=== PATIENT | female | born 1950 | race Caucasian/White ===

== ENCOUNTER → 2024-06-03 | Outpatient (CLI) | payer MEDICARE, SELFPAY ==
--- NOTE | 2024-06-03 15:26 | BI_ITS ---
MAMMOGRAPHY - BILATERAL SCREENING REASON FOR EXAM: Female, 74 years old. Routine annual screening examination. PERTINENT HISTORY: Non-contributory. TECHNIQUE: Digital bilateral breast beth (3D mammographic acquisition) in the CC and MLO projections. 2-D mediolateral oblique (MLO) and craniocaudad (CC) views of both breasts were obtained. CAD: Full Field Digital Mammography with Computer Added Detection was performed. COMPARISON: Comparison is made with prior study February 15, 2017. FINDINGS: Breast Composition: The breasts are almost entirely fatty. There are no dominant masses or suspicious calcifications. Stable small benign-appearing bilateral axillary lymph nodes. No other significant abnormalities are identified. There has been no significant change since the prior study. BI/SCRN MAMM (CAD)W/BETH BILAT IMPRESSION: Stable bilateral screening mammogram. Yearly follow-up mammogram recommended. (A) ASSESSMENT CATEGORY: BIRADS Category 2: Benign. A letter regarding these results will be sent to the patient by the facility within 30 days. Approximately 10% of breast cancers are not detected by mammography. A normal mammogram should not delay biopsy of a clinically suspicious abnormality. [id number] Electronically Signed: Leopoldo Phipps MD at 8:02 EDT ,
== END | disposition home or self-care (01) ==
PROVIDERS: PCP Family Medicine; Referring Provider Family Medicine; Visit Provider Family Medicine
DX: Z12.31 Encounter for screening mammogram for malignant neoplasm of breast (principal)
CPT/HCPCS: 77063; 77067

== ENCOUNTER → 2025-03-20 | Outpatient (CLI) | payer MEDICARE, SELFPAY ==
[2025-03-20 14:07] LABS: ALB/GLOB Ratio 1.7 RATIO (0.9-2.4); AST(SGOT) 28 U/L (<=31); Alanine Aminotransfer ALT/SGPT 42 U/L (<=34); Albumin, Serum 4.1 g/dL (3.4-4.8); Alkaline Phosphatase 58 U/L (35-104); Anion Gap 9 (5-15); BUN 25 mg/dL (4-19); BUN/Creat Ratio 24.2 RATIO (10-20); Calcium,Total 9.6 mg/dL (7.6-11.0); Chloride 108 mmol/L (98-108); Creatinine, Serum 1.04 mg/dL (0.70-1.20); EST Glomerular Filtration Rate 56 (>60); Globulin 2.5 g/dL (2.2-4.2); Glucose 157 mg/dL (70-99); Potassium 4.3 mmol/L (3.3-5.1); Protein, Total 6.5 g/dL (5.9-8.4); Sodium Level 143 mmol/L (133-145); Total Bilirubin 1.65 mg/dL (0.00-1.30)
== END | disposition home or self-care (01) ==
PROVIDERS: PCP Family Medicine; Referring Provider Student in an Organized Health Care Education/Training Program; Visit Provider Student in an Organized Health Care Education/Training Program
DX: R74.8 Abnormal levels of other serum enzymes (principal)
CPT/HCPCS: 36415; 80053

== ENCOUNTER → 2025-06-04 | Outpatient (CLI) | payer MEDICARE, SELFPAY ==
--- NOTE | 2025-06-04 12:45 | US_ITS ---
PROCEDURE: TRANSVAGINAL NON- 06/04/2025 REASON FOR EXAM: PROLAPSE TECHNIQUE: TRANSVAGINAL NON- COMPARISON: None FINDINGS: Measurements: Uterus: 7.3 cm x 4.9 cm x 3.2 cm with a volume of 59 mL Endometrial Thickness: Endometrium is thickening for the patient's postmenopausal state. It measures 8.2 mm. It is heterogeneous in appearance with fluid and findings suggestive of possible polyps the largest measuring 6 mm x 14 mm x 12 mm. Right Ovary: 1.7 cm x 1.6 cm x 1.1 cm with a volume of 1.61 mL. Left Ovary: The left ovary is not visualized. Uterus: Heterogeneous echotexture suggestive of fibroid change although no focal fibroid is seen. Endometrium: Heterogeneous thickening of the endometrium measuring 8.2 mm with fluid and possible polyps. Clinical correlation recommended. Right ovary: Normal size and echotexture. Left ovary: Not visualized. Other: No large pelvic mass identified. US/Transvaginal Non- IMPRESSION: Heterogeneous thickening of the endometrium as described. Possible polyps. Cl inical correlation recommended. Heterogeneous appearance of the uterus suggestive of fibroid change. Reading Location: [facility]
--- OUTSIDE RECORDS SUMMARY | 2025-06-04 22:23 | XMS RPT_ITS | CCD ---
Author Organization [facility] CliniSyin Care Team Providers Care Import/Export Agent Name Role Phone JIL EDUARDO, DR YUNIOR Noble Primary Care Physician Alexandria LEY MD, DR YUNIOR Noble Attending Yin LEY MD, DR YUNIOR Noble Primary Care Unavailshruthi LEY MD, DR YUNIOR Noble Primary Care Unavailshruthi COLUNGA MD, GISEL Townsend Attending Unavailable JIL EDUARDO, DR YUNIOR Noble Primary Care Unavailshruthi LEY MD, DR YUNIOR Noble Attending Unavailshruthi COLUNGA MD, GISEL Townsend Admitting Unavailable KEANU EDUARDO, GISEL Townsend Attending Unavailable JERONIMO OGDEN-BOAT HOIST OPERATOR HELPER, KERRI Soto Referring Unavail able JIL EDUARDO, DR YUNIOR Noble Primary Care Unavailshruthi LEY MD, DR YUNIOR Noble Primary Care Unavailshruthi COLUNGA MD, GISEL Townsend Attending Unavailable RODRIGO BORGES MD Referring Unavailable Dr. Yunior Ley DO Primary Care Provider Dr. Yunior Ley DO Referring Provider [phone] Sandra Campa Attending Provider [phone] Sandra Campa Referring Provider Dr. Coni Blanco DO Attending Provider Yunior Ley Referring Unavailable Jil, Yunior Primary Care Unavailable Coni Blanco Attending Unavailshruthi e Yunior Ley Primary Care Unavailable Sandra Kwan Referring Unavailable Sandra Kwan Attending Unavailable Coni Blanco Referring Unavailshruthi e Coni Blanco Attending Unavailabl e Yunior Ley Primary Care Unavailable Jil Yunior Referring Unavailable Jil, Yunior Primary Care Unavailable Sandra Kwan Attending Unavailable Yunior Ley Referring Unavailable Yunior Ley Primary Care Unavailable Sandra Kwan Attending Unavailable Allergies Allergy Classification Reported Allergen(s) Allergy Type Date of Onset Reaction(s) Facility (7 sources) Amiodarone; Translations: [amiodarone] Drug Allergy 5 Monoparesis - leg (disorder), Photosensitivity (finding) [facility] [place] [facility] Comment on above: nose turned purple (1 source) Amiodarone Drug Allergy 5 [facility] Repository (1 source) Unable to Assess Drug allergy (disorder) 5 [facility] Repository Medications Current Medications Medication Drug Class(es) Dates Sig (Normalized) Sig (Original) apixaban 5 mg oral tablet (8 sources) Factor Xa Inhibitor Start: 12-18-2023 take 1 tablet by mouth twice daily Apixaban (Eliquis) 5 mg tablet Active 5 mg PO TWICE A DAY February 04, 2025 12:00am carvedilol 25 mg oral tablet (8 sources) alpha-Adrenergic Luz Marina, beta-Adrenergic Luz Marina Start: 07-15-2024 take 1 tablet by mouth twice daily at mealtime Carvedilol 25 mg tablet Active 25 mg PO TWICE A DAY February 11, 2025 12:00am must administer with a meal/food empagliflozin 10 mg oral tablet (8 sources) Sodium-Glucose Cotransporter 2 Inhibitor Start: 06-12-2024 take 1 tablet by mouth once daily Empagliflozin (Jardiance) 10 mg tablet Active 10 mg PO daily February 11, 2025 12:00am losartan potassium 100 mg oral tablet (8 sources) Angiotensin 2 Receptor Luz Marina Start: 02-04-2025 take 1 tablet by mouth once daily Losartan 100 mg tablet Active 100 mg PO daily February 04, 2025 12:00am Start: 09-15-2024 losartan 50 mg oral tablet Dose : 50 mg = 1 tab(s), Oral, qDay, # 90 tab(s), 3 Refill(s), Pharmacy: [id number] 165.1, cm, 09/10/24 13:43:00 EDT, Height, kg, 09/10/24 13:43:00 EDT, Dosing Weight Start Date: 09/15/24 Status: Ordered Quantity: 90.0 Unit: tab(s) Repeat number: 4 metFORMIN hydrochloride 500 mg oral tablet (8 sources) Biguanide Start: 05-26-2020 take 1 tablet by mouth once daily Metformin 500 mg tablet Active 500 mg PO daily February 11, 2025 12:00am 0.25 mg, 0.5 mg dose 1.5 ml semaglutide 1.34 mg/ml pen injector (3 sources) Start: 02-04-2025 Semaglutide (Ozempic) 0.25 mg or 0.5 mg(2 mg/1.5 mL) pen injector Active 0.5 mg SC EVERY WEEK February 04, 2025 12:00am sotalol hydrochloride 80 mg oral tablet (13 sources) Antiarrhythmic Start: 05-25-2025 take 1 tablet by mouth twice daily Sotalol 80 mg tablet Active 80 mg PO TWICE A DAY May 25, 2025 12:00am Start: 01-22-2025 End: 05-25-2025 take 1 tablet by mouth twice daily Sotalol 120 mg tablet Discontinued 120 mg PO TWICE A DAY February 11, 2025 12:00am May 25, 2025 11:27am Start: 12-04-2024 take 1.5 tablets by mouth in the morning, then take 1 tablet by mouth in the evening sotalol 120 mg oral tablet See Instructions, 1.5 tab(s) In morning 1 tab in evening, # 180 tab(s), 3 Refill(s) Start Date: 12/04/24 Status: Ordered Quantity: 180.0 Unit: tab(s) Repeat number: 4 Completed/Discontinued Medications Medication Drug Class(es) Dates Sig (Normalized) Sig (Original) 0.25 MG, 0.5 MG Dose 3 ML semaglutide 0.68 MG/ML Pen Injector [Ozempic] (5 sources) Start: 01-22-2025 inject 0.5 mg by subcutaneous injection every week Ozempic 2 mg/3 mL (0.25 mg or 0.5 mg dose) subcutaneous solution Dose : 0.5 mg =, Subcutaneous, qWeek, mondays rotate injection sites, # 1 EA, 0 Refill(s) Start Date: 01/22/25 Status: Ordered Quantity: 1.0 Unit: EA Repeat number: 1 Start: 08-01-2024 inject 0.5 mg by sub cutaneous injection every week Ozempic 2 mg/3 mL (0.25 mg or 0.5 mg dose) subcutaneous solution Dose : 0.25 mg =, Subcutaneous, qWeek, rotate injection sites, # 1 EA, 0 Refill(s) Start Date: 06/12/24 Status: Ordered Quantity: 1.0 Unit: EA Repeat number: 1 metoprolol tartrate 100 mg oral tablet (3 sources) beta-Adrenergic Luz Marina Start: 02-04-2025 End: 02-11-2025 take 1 tablet by mouth once daily Metoprolol Tartrate 100 mg tablet Discontinued 100 mg PO daily February 04, 2025 12:00am February 11, 2025 10:29am rosuvastatin calcium 10 mg oral tablet (6 sources) HMG-CoA Reductase Inhibitor Start: 02-04-2025 End: 02-11-2025 take 1 tablet by mouth once daily Rosuvastatin 10 mg tablet Discontinued 10 mg PO daily February 04, 2025 12:00am February 11, 2025 10:31am Start: 07-09-2024 take 1 tablet by melva th once daily rosuvastatin 10 mg oral tablet 1 tab(s), Oral, qDay, # 90 tab(s), 2 Refill(s), Pharmacy: [facility] 165.1, cm, 06/12/24 13:05:00 EDT, Height, kg, 06/12/24 13:05:00 EDT, Dosing Weight Start Date: 07/09/24 Status: Ordered Quantity: 90.0 Unit: tab(s) Repeat number: 3 Problems Problem Classification Problem Date Documented Date Episodic/Chronic Cardiac dysrhythmias (5 sources) Paroxysmal atrial fibrillation 05-12-2020 Chronic Comment on above: Stable. Maintaining sinus rhythm. She is on amiodarone and Eliquis. EKG in room shows sinus bradycardia with a QT of 0.44. Disorders of lipid metabolism (5 sources) Mixed hyperlipidemia 05-12-2020 Chronic Comment on above: Stable. LDL goal is less than 100. Tolerating statin. Essential hypertension (5 sources) Essential hypertension 05-12-2020 Chronic Comment on above: Controlled. Blood pr essure goal is less than 130/80. She is on metoprolol and losartan. Checks lab work through PCP. Other liver diseases (8 sources) Elevated liver enzymes level; Translations: [Abnormal levels of other serum enzymes] 02-11-2025 Episodic Other liver diseases (1 source) Abnormal levels of other serum enzymes; Translations: [Abnormal levels of other serum enzymes] Onset: 04-15-2025 Episodic Other lower respiratory disease (5 sources) Dyspnea 05-26-2020 Episodic Paralysis (5 sources) Paraparesis 05-12-2020 Chronic Comment on above: Patient does complai n of bilateral leg weakness. She states it feels like it is coming from her knees. She does have arthritis. She states she can walk on flat planes without difficulty, but anything with an incline tires her legs out. Leda-; endo-; and myocarditis; cardiomyopathy (except that caused by tuberculosis or sexually transmitted disease) (5 sources) Dilated cardiomyopathy 05-12-2020 Chronic Comment on above: In 2016 patient was diagnosed with cardiomyopathy, EF was 25%. Thought to be tachycardia mediated due to the fact she was in atrial fibrillation with RVR. When she converted back to a sinus rhythm repeat echocardiogram showed an EF of 55%. She is on metoprolol and losartan. Prolapse of female genital organs (2 sources) Female genital prolapse, unspecified; Translations: [Female genital prolapse, unspecified] Onset: 05-25-2025 Chronic Results Test Name Value Interpretation Reference Range Facility Sharepoint Specialist Office Visit Reporton 05-25-2025 Sharepoint Specialist Office Visit Report [facility] [address], [address] [place] [address] OFFICE VISIT Date of Service: 05/25/25 MR#: [id number] Acct: [id number] Name: GILMA RABAGO Rep #: [id number] 6 : 1950 Provider: Dr. Coni Funes DO Age/Sex: 75/F Location: [facility] Status: Signed Intake Vital Signs 05/25/25 11:28 Height 5 ft 5 in Weight: 158 lb 6 oz BMI 26.3 BP 138/86 H Intake Visit Reasons: Surgical Consult (KYLE) Chief Complaint: Surgical Consult Piping Designer Required: No Is patient in pain?: No Allergies amiodarone Allergy (Verified 05/25/25 11:26) Other Medications ???Medication ???Instructions ???Recorded ???Confirmed ???Type apixaban 5 mg tablet (Eliquis) 5 mg PO BID 02/04/25 05/25/25 Hist ory losartan 100 mg tablet 100 mg PO QDAY 02/04/25 05/25/25 H istory semaglutide 0.25 mg or 0.5 mg (2 0.5 mg subcut QWEEK 02/04/2505/25 History mg/1.5 mL) subcutaneous pen injector (Ozempic) carvedilol 25 mg tablet 25 mg PO BID 02/11/25 05/25/25 His tory empagliflozin 10 mg tablet 10 mg PO QDAY 02/11/25 05/25/25 Hi story (Jardiance) metformin 500 mg tablet 500 mg PO QDAY 02/11/25 05/25/25 H istory sotalol 80 mg tablet 80 mg PO BID 05/25/25 05/25/25 His tory Is last menstrual period known: No Post menopausal: Yes Patient : No : No PFSH Medical History (Updated 05/25/25 @ 17:[address] Coni Blanco DO) Melanoma GERD (gastroesophageal reflux disease) Hypertension Gallstones Diabetes Bilateral cataracts Afib Surgical History (Updated 05/25/25 @ 17:[address] Coni Blanco DO) History of cardiac ablation for atrial fibrillation History of conization of cervix Carbon teeth removed Family History Father Bladder cancer Myocardial infarction, Onset Age: 86 Social History Smoking Status: Never smoker alcohol intake: current alcohol intake frequency: holidays/special occasions only substance use type: does not use what type of physical activity do you participate in: none HPI Surgical Consult (KYLE) Details: GILMA RABAGO is a 75 year old who presents for surgical consultation. She has the complaint of pelvic floor prolapse and has seen Dr. Song already. Dr. song told her that she has at least a grade 2 cystocele. She was counseled on the use of a pessary and she declines. She is still sexually active with her and does not want to have to take it out every time they are intimate. She denies bladder symptoms at this time. She denies bleeding ,bloating, cramping. She has not undergone a pelvic ultrasound yet. ROS Const ROS Unobtainable: All systems reviewed are unremarkable except as noted in H Resp Resp: Reports system reviewed and no additional complaints, except as documented; Denies cough GI GI: Reports as per HPI Psych Psych: Reports system reviewed and no additional complaints, except as documented Exam Const General: cooperative, healthy appearing, comfortable and no acute distress Resp Effort Inspection: normal respiratory effort GI Inspection: normal to inspection and non-distended Palpation: no hepatosplenomegaly and no guarding External Female Exam: gaping introitus and other (vaginal atrophy present. ) Urethra: other (small urethral prolapse ) Speculum Exam - Cervix: other (The cervix is difficult to visualize, likely due to stenosis. ) Bimanual Exam- Vagina Uterus: normal bimanual exam Bimanual Exam- Adnexa, other: normal rectovaginal exam, rectocele, cystocele and vaginal apex descent Recto-Vaginal: normal rectovaginal exam Pelvic Support: cystocele moderate, rectocele and vaginal apex descent mild Other: THe cervix palpated but not visualized. Skin General: no rashes or lesions noted Psych Appearance: grossly normal Speech and Movement: speech and movement normal Coding Level of Care Code Off vis,est,level 3 Diagnoses Pelvic organ prolapse quantification stage 2 cystocele N81.10 History of cardiac ablation for atrial fibrillation Z98.890; I48.91 Elevated liver enzymes R74.8 Assessment and Plan Assessment and Plan (1) Pelvic organ prolapse quantification stage 2 cystocele: Status: Acute (2) History of cardiac ablation for atrial fibrillation: Status: Acute (3) Elevated liver enzymes: Status: Acute Orders: Orders Pelvic w/ Transvaginal Today N81.9 - Female genital prolapse, unspecified Plan plan to start with a pelvic ultrasound and when results back will decide on mode of hysterectomy. followed by GI for mildly elevate LFTs. Likely due to the use of statins. 05/25/251726 Date (more content not included)... Normal [facility] Gastroenterology Visit Repor ton 06-04-2025 Gastroenterology Visit Report [facility] [address] [place] [address] OFFICE VISIT Date of Service: 04/15/25 MR#: [id number] Acct: [id number] Name: GILMA RABAGO Rep #: [id number] 1 : 1950 Provider: GEOFFREY Toro Age/Sex: 75/F Location: [facility] Status: Signed Intake Intake Visit Reasons: Follow up Chief Complaint: elevated liver enzymes Allergies amiodarone Allergy (Verified 04/14/25 15:41) Other Have you fallen in the past year?: No Nurse's Note: OV 04.15.25 Pt here for a f/u. Pt reports she is feeling well. Pt continues metoromin, jardiance and ozempic. PFSH Medical History (Updated 04/14/25 @ 15:39 by Rosa Harris) Melanoma GERD (gastroesophageal reflux disease) Hypertension Gallstones Diabetes Bilateral cataracts Afib Surgical History (Updated 04/14/25 @ 15:40 by Rosa Harris) History of endometrial ablation History of conization of cervix Carbon teeth removed Family History (Updated 04/14/25 @ 15:42 by Rosa Harris) Father Bladder cancer Myocardial infarction, Onset Age: 86 Social History (Updated 04/14/25 @ 15:41 by Rosa Harris) Smoking Status: Never smoker alcohol intake: current alcohol intake frequency: holidays/special occasions only substance use type: does not use what type of physical activity do you participate in: none HPI HPI Chief Complaint: elevated liver enzymes Details: GILMA RABAGO, is a 75 F who presents to the office today for f/u. [facility] established 4.2.35 for elevated LFTS x1 year. Dec 2024 with AST 49 and ALT 79 . She is s/p cholecystectomy in 2009. Pt on Crestor but recently discontinued due to her LFTS. Using acetaminophen intermittently but sometimes daily for a week or two. Repeat CMP. Consider elastography. Biochemical work up 5.9.25; AST 28, ALT 42 H, ALP 58 OV 6.4.25 Pt feeling well today. She denies any GI symtpoms at this time. She is not taking statin still. Exam Const General: cooperative and healthy appearing Resp Effort Inspection: normal respiratory effort Cardio Rate: regular rate Rhythm: regular rhythm GI Inspection: normal to inspection Auscultation: normal bowel sounds Palpation: soft, no hepatosplenomegaly and nontender Assessment and Plan Assessment and Plan (1) Elevated liver enzymes: Status: Acute Plan: Gilma is a 75 yo female pt here today for f/u regarding her elevated liver enzymes. She was taken off her Crestor a few months back as her PCP had concern it was increasing her enzymes. Blood work from early March 2025 showed decreasing enzymes. ALT continues to be elevated but just mildly. I will repeat LFTs in 2 months for continued monitoring. -Repeat LFTs in 2 months -Avoid hepatotoxic agents Orders: Orders Comprehensive Metabolic Profil Today R74.8 - Abnormal levels of other serum enzymes Coding Level of Care Code Off vis,est,level 3 Diagnoses Elevated liver enzymes R74.8 Clinical Quality Measures Falls Risk Screening/Assistive Devices Have you fallen in the past year?: No 04/15/25 1542 Date Sandra Davisigner Signature: Date (if applicable) CC: Normal [facility] Anion gap in Serum or Plasma Ordered By: Sandra Kwan on 03-20-2025 Anion gap [Moles/Vol] 9 mmol/L 5-15 [facility] BUN/creatinine ratioOrdered By: Sandra Kwan on 03-20-2025 Urea nitrogen/Creatinine [Mass ratio] 24.2 mg/mg High 10-20 [facility] Bilirubin, totalOrdered By: Sandra Kwan on 03-20-2025 Bilirubin [Mass/Vol] 1.65 mg/dL High 0.00-1.30 [facility] Carbon dioxide, total [Moles /volume] in Central venous bloodOrdered By: Sandra Kwan on 03-20-2025 CO2 [Moles/Vol] 25.0 mmol/L 21.0-32.0 [facility] Chloride assayOrdered By: Ying Kwan on 03-20-2025 Chloride [Moles/Vol] 108 mmol/L 98-108 [facility] Comprehensive Metabolic Prof ilon 03-20-2025 Albumin [Mass/Vol] 4.1 g/dL Normal 3.4-4.8 [facility] Comment on above: Performed By: #### L 500.4050 #### [facility] [address] [place], [address] Albumin/Globulin [Mass ratio] 1.7 {ratio} Normal 0.9-2.4 [facility] Comment on above: Performed By: #### L 500.4050 #### [facility] [address] [place], [address] ALK PHOS 58 U/L Normal 35-104 [facility] Comment on above: Performed By: #### L [id number] #### [facility] [address] [place], [address] ALT [Catalytic activity/Vol] 42 U/L High <=34 [facility] Comment on above: Performed By: #### L [id number] #### [facility] [address] [place], [address] AST [Catalytic activity/Vol] 28 U/L Normal <=31 [facility] Comment on above: Performed By: #### L [id number] #### [facility] [address] [place], [address] Bilirubin [Mass/Vol] 1.65 mg/dL High 0.00-1.30 [facility] Comment on above: Performed By: #### L 500.4050 #### [facility] [address] [place], [address] BUN/CRE 24.2 RATIO High 10-20 [facility] Comment on above: Performed By: #### L [id number] #### [facility] [address] [place], [address] Calcium [Mass/Vol] 9.6 mg/dL Normal 7.6-11.0 [facility] Comment on above: Performed By: #### L [id number] #### [facility] [address] [place], [address] Chloride [Moles/Vol] 108 mmol/L Normal 98-108 [facility] Comment on above: Performed By: #### L 500.4050 #### [facility] [address] [place], [address] CO2 [Moles/Vol] 25.0 mmol/L Normal 21.0-32.0 [facility] Comment on above: Performed By: #### L 500.4050 #### [facility] [address] [place], [address] Creatinine [Mass/Vol] 1.04 mg/dL Normal 0.70-1.20 [facility] Comment on above: Performed By: #### L 500.4050 #### [facility] [address] [place], [address] GAP 9 Normal 5-15 [facility] Comment on above: Performed By: #### L 500.4050 #### [facility] [address] [place], [address] GFR/1.73 sq M.predicted among non-blacks MDRD (S/P/Bld) [Vol rate/Area] 56 mL/min/{1.73_m2} Low >60 [facility] Comment on above: Result Comment: mL/m in/1.73m2 CKD-EPI Creatinine Equation (2020) Performed By: #### L 500.4050 #### [facility] [address] [place], [address] Globulin (S) [Mass/Vol] 2.5 g/dL Normal 2.2-4.2 [facility] Comment on above: Performed By: #### L 500.4050 #### [facility] [address] [place], [address] Glucose [Mass/Vol] 157 mg/dL High 70-99 [facility] Comment on above: Performed By: #### L 500.4050 #### [facility] [address] [place], [address] Potassium [Moles/Vol] 4.3 mmol/L Normal 3.3-5.1 [facility] Comment on above: Performed By: #### L 500.4050 #### [facility] [address] [place], [address] Sodium [Moles/Vol] 143 mmol/L Normal 133-145 [facility] Comment on above: Performed By: #### L 500.4050 #### [facility] [address] [place], [address] T PROT 6.5 g/dL Normal 5.9-8.4 [facility] Comment on above: Performed By: #### L 500.4050 #### [facility] [address] [place], [address] Urea nitrogen [Mass/Vol] 25 mg/dL High 4-19 [facility] Comment on above: Performed By: #### L 500.4050 #### [facility] [address] [place], [address] Glomerular filtration rate ( GFR) estimation/1.73 sq m using serum, plasma, or whole bOrdered By: Sandra Kwan on 03-20-2025 GFR/1.73 sq M.predicted among non-blacks MDRD (S/P/Bld) [Vol rate/Area] 56 mL/min/{1.73_m2} Low >60 [facility] Comment on above: mL/min/1.73m2 CKD-EP I Creatinine Equation (2020) Laboratory - Chemistry and C hemistry - challengeOrdered By: Sandra Kwan on 03-20-2025 AST [Catalytic activity/Vol] 28 U/L <32 [facility] Potassium measurement (mass/ volume)Ordered By: Sandra Kwan on 03-20-2025 Potassium (Unsp spec) [Mass/Vol] 4.3 mmol/L 3.3-5.1 [facility] Serum creatinine measurement (mass/volume)Ordered By: Sandra Kwan on 03-20-2025 Creatinine [Mass/Vol] 1.04 mg/dL 0.70-1.20 [facility] Serum globulin measurementOr dered By: Sandra Kwan on 03-20-2025 Globulin (S) [Mass/Vol] 2.5 g/dL 2.2-4.2 [facility] Serum glucose measurement (m ass/volume)Ordered By: Sandra Kwan on 03-20-2025 Glucose [Mass/Vol] 157 mg/dL High 70-99 [facility] Serum or plasma alanine honeycutt otransferase (ALT) measurementOrdered By: Sandra Kwan on 03-20-2025 ALT [Catalytic activity/Vol] 42 U/L High <35 [facility] Serum or plasma albumin hari urement (mass/volume)Ordered By: Sandra Kwan on 03-20-2025 Albumin [Mass/Vol] 4.1 g/dL 3.4-4.8 [facility] Serum or plasma albumin/glob ulin mass ratioOrdered By: Sandra Kwan on 03-20-2025 Albumin/Globulin [Mass ratio] 1.7 {ratio} 0.9-2.4 [facility] Serum or plasma alkaline mame sphatase measurementOrdered By: Sandra Kwan on 03-20-2025 ALP [Catalytic activity/Vol] 58 U/L 35-104 [facility] Serum or plasma calcium hari urement (mass/volume)Ordered By: Sandra Kwan on 03-20-2025 Calcium [Mass/Vol] 9.6 mg/dL 7.6-11.0 [facility] Serum or plasma urea nitroge n measurement (mass/volume)Ordered By: Sandra Kwan on 03-20-2025 Urea nitrogen [Mass/Vol] 25 mg/dL High 4-19 [facility] Sodium levelOrdered By: June black Aquiles on 03-20-2025 Sodium [Moles/Vol] 143 mmol/L 133-145 [facility] Total proteinOrdered By: Dory tobin Aquiles on 03-20-2025 Protein [Mass/Vol] 6.5 g/dL 5.9-8.4 [facility] .GFRon 02-13-2025 Estimated Glomerular Filtration Rate 52 ml/min/1.73sqm Normal [facility] Comment on above: Result Comment: Stages of Chronic Kidney Disease (CKD) Stage Description eGFR(ml/min/1.73 sq.m.) CKD 1 Normal kidney function or >=90 normal kindney function with possible kidney damage (ex. Proteinuria) CKD 2 Kidney damage with mild loss 60-89 of kidney function CKD 3a Mild to moderate loss of kidney 45-59 function CKD 3b Moderate to severe loss of 30-44 of kindey function CKD 4 Severe loss of kidney function 15-29 CKD 5 Kidney failure <15 Note: (go live 2024) the eGFR calculation was updated to the 2020 CKD-EPI creatinine equation without a race factor to calculate the eGFR results. Performed By: #### G FR, BMP, CBC, ANEU, ADIFF #### [address] [address] BMPon 02-13-2025 BUN/Creatinine Ratio 26.4 ratio High 10.0-22.[address] [facility] MAIN Comment on above: Performed By: #### G FR, BMP, CBC, ANEU, ADIFF #### [address] [address] Calcium [Mass/Vol] 8.8 mg/dL Normal 8.7-10.4 [facility] Comment on above: Performed By: #### G FR, BMP, CBC, ANEU, ADIFF #### [address] [address] Chloride [Moles/Vol] 109 mmol/L Normal 98-[address] [facility] Comment on above: Performed By: #### G FR, BMP, CBC, ANEU, ADIFF #### [address] [address] CO2 [Moles/Vol] 25 mmol/L Normal 22-32 [facility] Comment on above: Performed By: #### G FR, BMP, CBC, ANEU, ADIFF #### [address] [address] Creatinine [Mass/Vol] 1.10 mg/dL Normal 0.50-1.20 [facility] MA[facility] Comment on above: Result Comment: Test ing performed on [employer] analyzer using enzymatic creatinine methodology. Performed By: #### G FR, BMP, CBC, ANEU, ADIFF #### [address] [address] Electrolyte Balance 8.0 mEq/L Normal 4.0-15.0 [facility] MAIN Comment on above: Performed By: #### G FR, BMP, CBC, ANEU, ADIFF #### [address] [address] Glucose [Mass/Vol] 226 mg/dL High 82-115 [facility] Comment on above: Performed By: #### G FR, BMP, CBC, ANEU, ADIFF #### [address] [address] Potassium [Moles/Vol] 4.2 mmol/L Normal 3.5-5.0 [facility] Comment on above: Performed By: #### G FR, BMP, CBC, ANEU, ADIFF #### [address] [address] Sodium [Moles/Vol] 142 mmol/L Normal 136-145 [facility] Comment on above: Performed By: #### G FR, BMP, CBC, ANEU, ADIFF #### [address] [address] Urea nitrogen [Mass/Vol] 29.0 mg/dL High 8.0-22.0 [facility] Comment on above: Performed By: #### G FR, BMP, CBC, ANEU, ADIFF #### [address] [address] LABORATORYOrdered By: SYSTEM SYSTEM on 02-13-2025 Calcium [Mass/Vol] 8.8 mg/dL Normal 8.7 - 10. 4 mg/dL AH ADM SS Chloride [Moles/Vol] 109 mmol/L Normal 98 - 11 0 mEq/L AH ADM SS CO2 [Moles/Vol] 25 mmol/L Normal 22 - 32 mEq/L AH ADM SS Creatinine [Mass/Vol] 1.10 mg/dL Normal 0.50 - 1.20 mg/dL AH ADM SS Comment on above: Interpretive Data: T esting performed on [employer] analyzer using enzymatic creatinine methodology. Electrolyte Balance 8.0 mEq/L Normal 4.0 - 15 .0 mEq/L AH ADM SS Estimated Glomerular Filtration Rate 52 ml/min/1.73sqm Invalid Interpretation Code Chemistry S Comment on above: Interpretive Data: Stages of Chronic Kidney Disease (CKD) Stage Description eGFR(ml/min/1.73 sq.m.) CKD 1 Normal kidney function or >=90 normal kindney function with possible kidney damage (ex. Proteinuria) CKD 2 Kidney damage with mild loss 60-89 of kidney function CKD 3a Mild to moderate loss of kidney 45-59 function CKD 3b Moderate to severe loss of 30-44 of kindey function CKD 4 Severe loss of kidney function 15-29 CKD 5 Kidney failure <15 Note: (go live 2024) the eGFR calculation was updated to the 2020 CKD-EPI creatinine equation without a race factor to calculate the eGFR results. Glucose [Mass/Vol] 226 mg/dL High 82 - 115 mg/dL ADM SS Potassium [Moles/Vol] 4.2 mmol/L Normal 3.5 - 5.0 mEq/L ADM SS Sodium [Moles/Vol] 142 mmol/L Normal 136 - 145 mEq/L ADM SS Urea nitrogen [Mass/Vol] 29.0 mg/dL High 8.0 - 22.0 mg/dL ADM SS Urea nitrogen/Creatinine [Mass ratio] 26.4 ratio High 10.0 - 22.0 ratio AH ADM SS .Auto Diffon 02-12-2025 Basophil, Absolute 0.0 10 3/mcL Normal 0.0-0.[address] [facility] Comment on above: Performed By: #### A JANES, GFR, ADIFF, BMP, ABSGEL, ABOGEL, CBC #### [place] [id number] [place] [address] Basophils/100 WBC (Bld) 0.4 % Normal 0.0-2.5 [facility] Comment on above: Performed By: #### A JANES, GFR, ADIFF, BMP, ABSGEL, ABOGEL, CBC #### [address] [address] Eosinophil, Absolute 0.1 10 3/mcL Normal 0.0-0.7 [facility] Comment on above: Performed By: #### A JANES, GFR, ADIFF, BMP, ABSGEL, ABOGEL, CBC #### [address] [address] Eosinophils/100 WBC (Bld) 2.8 % Normal 0.0-6.0 [facility] Comment on above: Performed By: #### A JANES, GFR, ADIFF, BMP, ABSGEL, ABOGEL, CBC #### [address] [address] Lymphocyte, Absolute 0.9 10 3/mcL Normal 0.9-4.3 [facility] Comment on above: Performed By: #### A JANES, GFR, ADIFF, BMP, ABSGEL, ABOGEL, CBC #### [address] [address] Lymphocytes/100 WBC (Bld) 21.0 % Normal 20.0-40.0 [facility] Comment on above: Performed By: #### A JANES, GFR, ADIFF, BMP, ABSGEL, ABOGEL, CBC #### [address] [address] Monocyte, Absolute 0.6 10 3/mcL Normal 0.1-1.[address] [facility] Comment on above: Performed By: #### A JANES, GFR, ADIFF, BMP, ABSGEL, ABOGEL, CBC #### [address] [address] Monocytes/100 WBC (Bld) 13.1 % High 2.0-13.0 [facility] Comment on above: Performed By: #### A JANES, GFR, ADIFF, BMP, ABSGEL, ABOGEL, CBC #### [address] [address] Neutrophils/100 WBC (Bld) 62.7 % Normal 50.0-75.0 [facility] Comment on above: Performed By: #### A JANES, GFR, ADIFF, BMP, ABSGEL, ABOGEL, CBC #### [address] [address] .GFRon 02-12-2025 Estimated Glomerular Filtration Rate 53 ml/min/1.73sqm Normal [facility] Comment on above: Result Comment: Stages of Chronic Kidney Disease (CKD) Stage Description eGFR(ml/min/1.73 sq.m.) CKD 1 Normal kidney function or >=90 normal kindney function with possible kidney damage (ex. Proteinuria) CKD 2 Kidney damage with mild loss 60-89 of kidney function CKD 3a Mild to moderate loss of kidney 45-59 function CKD 3b Moderate to severe loss of 30-44 of kindey function CKD 4 Severe loss of kidney function 15-29 CKD 5 Kidney failure <15 Note: (go live 2024) the eGFR calculation was updated to the 2020 CKD-EPI creatinine equation without a race factor to calculate the eGFR results. Performed By: #### A JANES, GFR, ADIFF, BMP, ABSGEL, ABOGEL, CBC #### [place] [address] .NEUABSon 02-12-2025 Neutrophil, Absolute 2.7 10 3/mcL Normal 2.3-8.1 [facility] Comment on above: Performed By: #### A JANES, GFR, ADIFF, BMP, ABSGEL, ABOGEL, CBC #### [place] [id number] ABO/Rh (Gel)on 02-12-2025 ABO/Rh Interp Positive Invalid Interpretation Code [facility] Comment on above: Performed By: #### G FR, BMP, CBC, ANEU, ADIFF #### [place] [id number] ABS (Gel)on 02-12-2025 ABSC Interp (Gel) Negative Normal [facility] Comment on above: Performed By: #### G FR, BMP, CBC, ANEU, ADIFF #### [place] [id number] APTTon 02-12-2025 aPTT Coag (Bld) [Time] 31.6 s Normal 25.0-35.0 [facility] Comment on above: Result Comment: For Heparin anticoagulation therapy, the recommended therapeutic range is: 54-77 seconds (APTT Correlation with Anti-Xa therapeutic range of 0.3-0.7 units/ml). PLEASE REFERENCE THE PHARMACY PROTOCOL FOR DOSING. Performed By: #### G FR, BMP, CBC, ANEU, ADIFF #### [address] [address] BMPon 02-12-2025 BUN/Creatinine Ratio 19.3 ratio Normal 10.0-22.[address] [facility] Comment on above: Performed By: #### A JANES, GFR, ADIFF, BMP, ABSGEL, ABOGEL, CBC #### [place] [address] Calcium [Mass/Vol] 9.3 mg/dL Normal 8.7-10.4 [facility] Comment on above: Performed By: #### A JANES, GFR, ADIFF, BMP, ABSGEL, ABOGEL, CBC #### [place] [id number] Chloride [Moles/Vol] 108 mmol/L Normal 98-[address] [facility] Comment on above: Performed By: #### A JANES, GFR, ADIFF, BMP, ABSGEL, ABOGEL, CBC #### [place] [id number] CO2 [Moles/Vol] 32 mmol/L Normal 22-32 [facility] Comment on above: Performed By: #### A JANES, GFR, ADIFF, BMP, ABSGEL, ABOGEL, CBC #### [place] [phone] Creatinine [Mass/Vol] 1.09 mg/dL Normal 0.50-1.20 [facility] Comment on above: Result Comment: Test ing performed on [employer] analyzer using enzymatic creatinine methodology. Performed By: #### A JANES, GFR, ADIFF, BMP, ABSGEL, ABOGEL, CBC #### [place] [address] Electrolyte Balance 2.0 mEq/L Low 4.0-15.0 [facility] MAIN Comment on above: Performed By: #### A JANES, GFR, ADIFF, BMP, ABSGEL, ABOGEL, CBC #### [address] [address] Glucose [Mass/Vol] 123 mg/dL High 82-115 [facility] Comment on above: Performed By: #### A JANES, GFR, ADIFF, BMP, ABSGEL, ABOGEL, CBC #### [address] [address] Potassium [Moles/Vol] 4.0 mmol/L Normal 3.5-5.0 [facility] Comment on above: Performed By: #### A JANES, GFR, ADIFF, BMP, ABSGEL, ABOGEL, CBC #### [address] [address] Sodium [Moles/Vol] 142 mmol/L Normal 136-145 [facility] MA[facility] Comment on above: Performed By: #### A JANES, GFR, ADIFF, BMP, ABSGEL, ABOGEL, CBC #### [address] [address] Urea nitrogen [Mass/Vol] 21.0 mg/dL Normal 8.0-22.0 [facility] Comment on above: Performed By: #### A JANES, GFR, ADIFF, BMP, ABSGEL, ABOGEL, CBC #### [address] [address] CBCon 02-12-2025 Erythrocyte distribution width (RBC) [Ratio] 12.8 % Normal 11.5-15.5 [facility] Comment on above: Performed By: #### A JANES, GFR, ADIFF, BMP, ABSGEL, ABOGEL, CBC #### [address] [address] Hematocrit (Bld) [Volume fraction] 41.5 % Normal 34.0-46.0 [facility] Comment on above: Performed By: #### A JANES, GFR, ADIFF, BMP, ABSGEL, ABOGEL, CBC #### [address] [address] Hgb 14.4 G/dL Normal 12.0-16.0 [facility] Comment on above: Performed By: #### A JANES, GFR, ADIFF, BMP, ABSGEL, ABOGEL, CBC #### [place] [address] MCH (RBC) [Entitic mass] 32.7 pg Normal 27.0-33.0 [facility] Comment on above: Performed By: #### A JANES, GFR, ADIFF, BMP, ABSGEL, ABOGEL, CBC #### [place] [address] MCHC 34.6 G/dL Normal 32.0-36.0 [facility] Comment on above: Performed By: #### A JANES, GFR, ADIFF, BMP, ABSGEL, ABOGEL, CBC #### [place] [address] MCV (RBC) [Entitic vol] 94.5 fL Normal 80.0-99.0 [facility] Comment on above: Performed By: #### A JANES, GFR, ADIFF, BMP, ABSGEL, ABOGEL, CBC #### [place] [address] Platelet 150 10 3/mcL Normal 150-450 [facility] Comment on above: Performed By: #### A JANES, GFR, ADIFF, BMP, ABSGEL, ABOGEL, CBC #### [place] [address] Platelet mean volume (Bld) [Entitic vol] 10.9 fL High 6.6-10.5 [facility] Comment on above: Performed By: #### A JANES, GFR, ADIFF, BMP, ABSGEL, ABOGEL, CBC #### [place] [address] RBC 4.39 10 6/mcL Normal 4.10-5.30 [facility] Comment on above: Performed By: #### A JANES, GFR, ADIFF, BMP, ABSGEL, ABOGEL, CBC #### [place] [address] WBC 4.3 10 3/mcL Low 4.5-10.8 [facility] Comment on above: Performed By: #### A JANES, GFR, ADIFF, BMP, ABSGEL, ABOGEL, CBC #### [address] [address] FIBon 02-12-2025 Fibrinogen 373 mg/dL Normal 250-560 [facility] Comment on above: Performed By: #### G FR, BMP, CBC, ANEU, ADIFF #### [place] [id number] [place] [id number] LABORATORYOrdered By: Amos Gray on 02-12-2025 ABO and Rh group Nom (Bld) Blood group A Rh(D) positive Invalid Interpretation Code BB Auto SS Blood group antibody screen Ql Negative ABSC (02/12/25 9:50 AM) Normal BB Auto SS LABORATORYOrdered By: [employer] on 02-12-2025 aPTT Coag (Bld) [Time] 31.6 s Normal 25.0 - 35.0 seconds [facility] SS Comment on above: Interpretive Data: F or Heparin anticoagulation therapy, the recommended therapeutic range is: 54-77 seconds (APTT Correlation with Anti-Xa therapeutic range of 0.3-0.7 units/ml). PLEASE REFERENCE THE PHARMACY PROTOCOL FOR DOSING. Basophils (Bld) [#/Vol] 0.0 103/mcL Normal 0.0 - 0.3 10^3/mcL AH Workflow SS Basophils/100 WBC (Bld) 0.4 % Normal 0.0 - 2.5 % Workflow SS Calcium [Mass/Vol] 9.3 mg/dL Normal 8.7 - 10. 4 mg/dL ADM SS Chloride [Moles/Vol] 108 mmol/L Normal 98 - 11 0 mEq/L AH ADM SS CO2 [Moles/Vol] 32 mmol/L Normal 22 - 32 mEq/L AH ADM SS Creatinine [Mass/Vol] 1.09 mg/dL Normal 0.50 - 1.20 mg/dL ADM SS Comment on above: Interpretive Data: T esting performed on [employer] analyzer using enzymatic creatinine methodology. Electrolyte Balance 2.0 mEq/L Low 4.0 - 15 .0 mEq/L ADM SS Eosinophils (Bld) [#/Vol] 0.1 103/mcL Normal 0.0 - 0.7 10^3/mcL AH Workflow SS Eosinophils/100 WBC (Bld) 2.8 % Normal 0.0 - 6.0 % AH Workflow SS Erythrocyte distribution width (RBC) [Ratio] 12.8 % Normal 11.5 - 15.5 % AH Workflow SS Estimated Glomerular Filtration Rate 53 ml/min/1.73sqm Invalid Interpretation Code Chemistry S Comment on above: Interpretive Data: Stages of Chronic Kidney Disease (CKD) Stage Description eGFR(ml/min/1.73 sq.m.) CKD 1 Normal kidney function or >=90 normal kindney function with possible kidney damage (ex. Proteinuria) CKD 2 Kidney damage with mild loss 60-89 of kidney function CKD 3a Mild to moderate loss of kidney 45-59 function CKD 3b Moderate to severe loss of 30-44 of kindey function CKD 4 Severe loss of kidney function 15-29 CKD 5 Kidney failure <15 Note: (go live 2024) the eGFR calculation was updated to the 2020 CKD-EPI creatinine equation without a race factor to calculate the eGFR results. Fibrinogen 373 mg/dL Normal 250 - 560 mg/dL [facility] SS Glucose [Mass/Vol] 123 mg/dL High 82 - 115 mg/dL ADM SS Hematocrit (Bld) [Volume fraction] 41.5 % Normal 34.0 - 46.0 % AH Workflow SS Hemoglobin (Bld) [Mass/Vol] 14.4 G/dL Normal 12.0 - 16.0 G/dL AH Workflow SS Lymphocytes (Bld) [#/Vol] 0.9 103/mcL Normal 0.9 - 4.3 10^3/mcL AH Workflow SS Lymphocytes/100 WBC (Bld) 21.0 % Normal 20.0 - 40.0 % AH Workflow SS MCH (RBC) [Entitic mass] 32.7 pg Normal 27.0 - 33.0 pg AH Workflow SS MCHC 34.6 G/dL Normal 32.0 - 36.0 G/dL AH Workflow SS MCV (RBC) [Entitic vol] 94.5 fL Normal 80.0 - 99.0 fL Workflow SS Monocytes (Bld) [#/Vol] 0.6 103/mcL Normal 0.1 - 1.4 10^3/mcL AH Workflow SS Monocytes/100 WBC (Bld) 13.1 % High 2.0 - 13.0 % AH Workflow SS Neutrophils (Bld) [#/Vol] 2.7 103/mcL Normal 2.3 - 8.1 10^3/mcL Workflow SS Neutrophils/100 WBC (Bld) 62.7 % Normal 50.0 - 75.0 % Workflow SS Platelet mean volume (Bld) [Entitic vol] 10.9 fL High 6.6 - 10.5 fL Workflow SS Platelets (Bld) [#/Vol] 150 103/mcL Normal 150 - 450 10^3/mcL Workflow SS Potassium [Moles/Vol] 4.0 mmol/L Normal 3.5 - 5.0 mEq/L ADM SS PT Coag (PPP) [Time] 12.2 s Normal 9.0 - 1 4.4 seconds [facility] Comment on above: Interpretive Data: E ffective 05/26/08, Protime results may be affected by some antibiotics (i.e. Ciprofloxacin, Azithromycin, Bactrim) which may potentiate the action of oral anticoagulants, with further increases in Protime/INR. PT International Ratio 1.1 ratio Invalid Interpretation Code [facility] Comment on above: Interpretive Data: Brittany bosch [employer] (CHEST, 1992, 102:312S-25S) recommended therapeutic range for oral anticoagulant therapy is: LOW RISK: Prophylaxis of venous thrombosis INR: 2.0-3.0 Treatment of pulmonary embolism 2.0-3.0 Prevention of systemic embolism 2.0-3.0 HIGH RISK: Mechanical prosthetic valves 2.5-3.5 RBC (Bld) [#/Vol] 4.39 106/mcL Normal 4.10 - 5.3 0 10^6/mcL Workflow SS Sodium [Moles/Vol] 142 mmol/L Normal 136 - 145 mEq/L ADM SS Urea nitrogen [Mass/Vol] 21.0 mg/dL Normal 8.0 - 22.0 mg/dL ADM SS Urea nitrogen/Creatinine [Mass ratio] 19.3 ratio Normal 10.0 - 22.0 ratio ADM SS WBC (Bld) [#/Vol] 4.3 103/mcL Low 4.5 - 10.8 10^3/mcL Workflow SS PROon 02-12-2025 INR Coag (PPP) [Relative time] 1.1 {INR} Normal [facility] Comment on above: Result Comment: [employer] (CHEST, 1992, 102:312S-25S) recommended therapeutic range for oral anticoagulant therapy is: LOW RISK: Prophylaxis of venous thrombosis INR: 2.0-3.0 Treatment of pulmonary embolism 2.0-3.0 Prevention of systemic embolism 2.0-3.0 HIGH RISK: Mechanical prosthetic valves 2.5-3.5 Performed By: #### G FR, BMP, CBC, ANEU, ADIFF #### [place] [id number] [place] [address] PT Coag (PPP) [Time] 12.2 s Normal 9.0-14.[address] [facility] MAIN Comment on above: Result Comment: Effe ctive 05/26/08, Protime results may be affected by some antibiotics (i.e. Ciprofloxacin, Azithromycin, Bactrim) which may potentiate the action of oral anticoagulants, with further increases in Protime/INR. Performed By: #### G FR, BMP, CBC, ANEU, ADIFF #### [address] [address] Gastroenterology Visit Repor ton 02-11-2025 Gastroenterology Visit Report [facility] Gastroenterology [address] [facility] [place] [address] OFFICE VISIT Date of Service: 02/11/25 MR#: [id number] Acct: [id number] Name: GILMA RABAGO Rep #: [id number] : 1950 Provider: GEOFFREY Toro Age/Sex: 75/F Location: [facility] Status: Signed Intake Intake Visit Reasons: liver concerns Chief Complaint: elevated liver enzymes Allergies Unable to Assess Allergy (Unverified 02/11/25 10:59) Medications ???Medication ???Instructions ???Recorded ???Confirmed ???Type apixaban 5 mg tablet (Eliquis) 5 mg PO BID 02/04/25 02/04/25 Hist ory losartan 100 mg tablet 100 mg PO QDAY 02/04/25 02/04/25 H istory semaglutide 0.25 mg or 0.5 mg (2 0.5 mg subcut QWEEK 02/04/2502/04 History mg/1.5 mL) subcutaneous pen injector (Ozempic) carvedilol 25 mg tablet 25 mg PO BID 02/11/25 02/11/25 His tory empagliflozin 10 mg tablet 10 mg PO QDAY 02/11/25 02/11/25 Hi story (Jardiance) metformin 500 mg tablet 500 mg PO QDAY 02/11/25 02/11/25 H istory sotalol 120 mg tablet 120 mg PO BID 02/11/25 02/11/25 Hi story Have you fallen in the past year?: No Nurse's Note: OV 02.11.25 Pt here to establish care with [facility] with Liver concers. Pt reports colonoscopy 15 years ago. HPI HPI Chief Complaint: elevated liver enzymes Details: GILMA RABAGO, is a 75 F who presents to the office today for establishment with [facility]. Pt has had intermittent elevated liver enzymes for over a year now. She is s/p cholecystectomy in 2011. Pt has been seeing her PCP regarding this. She was recently taken off her Crestor due to its effects on the liver. She drinks alcohol on occasion. She notes taking acetaminophen intermittently for joint pain sometimes for a week at a time. She does not take OTC supplements. She has also had an elevated biliruin but she notes it has always been on the higher end. She denies abd pain, n/v, constipation or diarrhea. ROS Const Constitutional: No anorexia, fatigue, fever(s), weight change or sleep problems Eyes Eyes: No change in vision ENT ENT: No abnormal hearing, difficulty swallowing, mouth lesions, tongue swelling or throat swelling Resp Respiratory: No cough or shortness of breath Cardio Cardiology: No chest pain at rest, chest pain with exertion, shortness of breath or dyspnea on exertion Gastro GI: No difficulty swallowing Genitourinary-Female: No difficulty urinating or burning urination Musc Musculoskeletal: No joint pain, joint swelling, muscle weakness or decreased muscle mass Skin Skin: No hair loss in leg, yellowing of the eye, itchy eyes, rash, skin ulcer or skin swelling Neuro Neurology: No abnormal hearing, abnormal movements, confusion, unsteady gait/balance or memory loss Psych Psychiatric: No anxiety, No confusion and No memory loss Endo Endocrine: No fatigue or weight change Aller/Imm Allergy/Immunologic: No itchy eyes, throat swelling or tongue swelling Baljeet/Lymp Hematologic/Lymphatic: No easy bleeding, easy bruising or enlarged lymph nodes Assessment and Plan Assessment and Plan (1) Elevated liver enzymes: Status: Acute Plan: This is a 75 yo female pt here today for evaluation of elevated liver enzymes x1 year. She denies any symptoms associated with this. Pt is s/p cholecystectomy in 2011. She recently discontinued her crestor per her PCP recommendation due to its effects on liver enzymes. She admits to using acetaminophen intermittently and sometimes on a daily basis for a week or two. I encouraged she limit the use of acetaminophen and alcohol. We will re check her liver enzymes in 2 weeks to ensure they are down trending. I also recommend she have a liver elastography to rule out fatty liver as she has DM and a sedentary lifestyle. She would prefer to hold off on imaging at this time. -CMP in 2 weeks -Consider elastography -Avoid acetaminophen and alcohol Orders: Orders Comprehensive Metabolic Profil Today R74.8 - Abnormal levels of other serum enzymes Coding Level of Care Code Off vis,new,level 4 Diagnoses Elevated liver enzymes R74.8 Clinical Quality Measures Falls Risk Screening/Assistive Devices Have you fallen in the past year?: No Smoking Screening Smoking Status: Never smoker 02/11/25 1130 Date Sandra Pretty Signature: Date (if applicable) CC: Normal [facility] .Auto Diffon 01-22-2025 Basophil, Absolute 0.0 10 3/mcL Normal 0.0-0.[address] [facility] Comment on above: Performed By: #### G FR, BMP, CBC, ANEU, ADIFF #### [address] [address] Basophils/100 WBC (Bld) 0.6 % Normal 0.0-2.5 [facility] Comment on above: Performed By: #### G FR, BMP, CBC, ANEU, ADIFF #### [address] [address] Eosinophil, Absolute 0.1 10 3/mcL Normal 0.0-0.7 [facility] Comment on above: Performed By: #### G FR, BMP, CBC, ANEU, ADIFF #### [address] [address] Eosinophils/100 WBC (Bld) 2.1 % Normal 0.0-6.0 [facility] Comment on above: Performed By: #### G FR, BMP, CBC, ANEU, ADIFF #### [address] [address] Lymphocyte, Absolute 0.9 10 3/mcL Normal 0.9-4.3 [facility] Comment on above: Performed By: #### G FR, BMP, CBC, ANEU, ADIFF #### [address] [address] Lymphocytes/100 WBC (Bld) 22.4 % Normal 20.0-40.0 [facility] Comment on above: Performed By: #### G FR, BMP, CBC, ANEU, ADIFF #### [address] [address] Monocyte, Absolute 0.5 10 3/mcL Normal 0.1-1.[address] [facility] Comment on above: Performed By: #### G FR, BMP, CBC, ANEU, ADIFF #### [address] [address] Monocytes/100 WBC (Bld) 10.7 % Normal 2.0-13.0 [facility] Comment on above: Performed By: #### G FR, BMP, CBC, ANEU, ADIFF #### [address] [address] Neutrophils/100 WBC (Bld) 64.2 % Normal 50.0-75.0 [facility] Comment on above: Performed By: #### G FR, BMP, CBC, ANEU, ADIFF #### [address] [address] .GFRon 01-22-2025 Estimated Glomerular Filtration Rate 58 ml/min/1.73sqm Normal [facility] Comment on above: Result Comment: Stages of Chronic Kidney Disease (CKD) Stage Description eGFR(ml/min/1.73 sq.m.) CKD 1 Normal kidney function or >=90 normal kindney function with possible kidney damage (ex. Proteinuria) CKD 2 Kidney damage with mild loss 60-89 of kidney function CKD 3a Mild to moderate loss of kidney 45-59 function CKD 3b Moderate to severe loss of 30-44 of kindey function CKD 4 Severe loss of kidney function 15-29 CKD 5 Kidney failure <15 Note: (go live 2024) the eGFR calculation was updated to the 2020 CKD-EPI creatinine equation without a race factor to calculate the eGFR results. Performed By: #### G FR, BMP, CBC, ANEU, ADIFF #### [address] [address] .NEUABSon 01-22-2025 Neutrophil, Absolute 2.7 10 3/mcL Normal 2.3-8.1 [facility]IN Comment on above: Performed By: #### G FR, BMP, CBC, ANEU, ADIFF #### [address] [address] BMPon 01-22-2025 BUN/Creatinine Ratio 27.5 ratio High 10.0-22.[address] [facility] MAIN Comment on above: Performed By: #### G FR, BMP, CBC, ANEU, ADIFF #### [address] [address] Calcium [Mass/Vol] 10.2 mg/dL Normal 8.7-10.4 [facility] MAIN Comment on above: Performed By: #### G FR, BMP, CBC, ANEU, ADIFF #### [address] [address] Chloride [Moles/Vol] 109 mmol/L Normal 98-[address] [facility] MAIN Comment on above: Performed By: #### G FR, BMP, CBC, ANEU, ADIFF #### [address] [address] CO2 [Moles/Vol] 27 mmol/L Normal 22-32 [facility] MAIN Comment on above: Performed By: #### G FR, BMP, CBC, ANEU, ADIFF #### [address] [address] Creatinine [Mass/Vol] 1.02 mg/dL Normal 0.50-1.20 [facility] MAIN Comment on above: Result Comment: Test ing performed on [employer] - Improved [employer] analyzer using enzymatic creatinine methodology. Performed By: #### G FR, BMP, CBC, ANEU, ADIFF #### [address] [address] Electrolyte Balance 4.0 mEq/L Normal 4.0-15.0 [facility] MAIN Comment on above: Performed By: #### G FR, BMP, CBC, ANEU, ADIFF #### [address] [address] Glucose [Mass/Vol] 99 mg/dL Normal 82-115 [facility] MAIN Comment on above: Performed By: #### G FR, BMP, CBC, ANEU, ADIFF #### [place] [address] Potassium [Moles/Vol] 4.6 mmol/L Normal 3.5-5.0 [facility] MAIN Comment on above: Performed By: #### G FR, BMP, CBC, ANEU, ADIFF #### [address] [address] Sodium [Moles/Vol] 140 mmol/L Normal 136-145 [facility] MAIN Comment on above: Performed By: #### G FR, BMP, CBC, ANEU, ADIFF #### [place] [id number] Urea nitrogen [Mass/Vol] 28.0 mg/dL High 8.0-22.0 [facility] MAIN Comment on above: Performed By: #### G FR, BMP, CBC, ANEU, ADIFF #### [address] [address] CBCon 01-22-2025 Erythrocyte distribution width (RBC) [Ratio] 13.0 % Normal 11.5-15.5 [facility] MAIN Comment on above: Performed By: #### G FR, BMP, CBC, ANEU, ADIFF #### [address] [address] Hematocrit (Bld) [Volume fraction] 40.1 % Normal 34.0-46.0 [facility] MAIN Comment on above: Performed By: #### G FR, BMP, CBC, ANEU, ADIFF #### [place] [address] Hgb 13.7 G/dL Normal 12.0-16.0 [facility] MAIN Comment on above: Performed By: #### G FR, BMP, CBC, ANEU, ADIFF #### [place] [address] MCH (RBC) [Entitic mass] 32.1 pg Normal 27.0-33.0 [facility] MAIN Comment on above: Performed By: #### G FR, BMP, CBC, ANEU, ADIFF #### [place] [address] MCHC 34.0 G/dL Normal 32.0-36.0 [facility] MAIN Comment on above: Performed By: #### G FR, BMP, CBC, ANEU, ADIFF #### [place] [address] MCV (RBC) [Entitic vol] 94.4 fL Normal 80.0-99.0 [facility] MAIN Comment on above: Performed By: #### G FR, BMP, CBC, ANEU, ADIFF #### [place] [address] Platelet 149 10 3/mcL Low 150-450 [facility] MAIN Comment on above: Performed By: #### G FR, BMP, CBC, ANEU, ADIFF #### [place] [address] Platelet mean volume (Bld) [Entitic vol] 10.9 fL High 6.6-10.5 [facility] MAIN Comment on above: Performed By: #### G FR, BMP, CBC, ANEU, ADIFF #### [place] [address] RBC 4.25 10 6/mcL Normal 4.10-5.30 [facility] MA[facility] Comment on above: Performed By: #### G FR, BMP, CBC, ANEU, ADIFF #### [place] [address] WBC 4.2 10 3/mcL Low 4.5-10.8 [facility] MAIN Comment on above: Performed By: #### G FR, BMP, CBC, ANEU, ADIFF #### [address] [address] Mahin 01-22-2025 Ferritin [Mass/Vol] 42.3 ng/mL Normal 8.0-252.0 [facility] MAIN Comment on above: Performed By: #### G FR, BMP, CBC, ANEU, ADIFF #### [address] [address] HFPon 01-22-2025 Bili Indirect 1.6 mg/dL Normal 0.1-10.0 [facility] MA[facility] Comment on above: Performed By: #### G FR, BMP, CBC, ANEU, ADIFF #### [address] [address] Albumin Level 3.9 G/dL Normal 3.2-4.8 [facility] MA[facility] Comment on above: Performed By: #### G FR, BMP, CBC, ANEU, ADIFF #### [address] [address] Albumin/Globulin [Mass ratio] 1.4 {ratio} Normal 0.9-1.6 [facility] MAIN Comment on above: Performed By: #### G FR, BMP, CBC, ANEU, ADIFF #### [address] [address] ALP [Catalytic activity/Vol] 56 U/L Normal 38-126 [facility] MAIN Comment on above: Performed By: #### G FR, BMP, CBC, ANEU, ADIFF #### [address] [address] ALT [Catalytic activity/Vol] 79 U/L High 10-49 [facility] MAIN Comment on above: Performed By: #### G FR, BMP, CBC, ANEU, ADIFF #### [address] [address] AST [Catalytic activity/Vol] 68 U/L High 8-34 [facility] MAIN Comment on above: Performed By: #### G FR, BMP, CBC, ANEU, ADIFF #### [place] [address] Bili Direct 0.6 mg/dL High 0.0-0.4 [facility] MAIN Comment on above: Result Comment: Use of this assay is not recommended for patients undergoing treatment with eltrombopag due to the potential for falsely elevated results. Performed By: #### G FR, BMP, CBC, ANEU, ADIFF #### [place] [address] Bili Total 2.20 mg/dL High 0.20-1.20 [facility] MAIN Comment on above: Result Comment: Use of this assay is not recommended for patients undergoing treatment with eltrombopag due to the potential for falsely elevated results. Performed By: #### G FR, BMP, CBC, ANEU, ADIFF #### [place] [address] Globulin 2.7 G/dL Normal 1.5-3.8 [facility] MAIN Comment on above: Performed By: #### G FR, BMP, CBC, ANEU, ADIFF #### [place] [address] Total Protein 6.6 G/dL Normal 5.7-8.2 [facility] MAIN Comment on above: Performed By: #### G FR, BMP, CBC, ANEU, ADIFF #### [place] [address] LABORATORYOrdered By: SYSTEM SYSTEM on 01-22-2025 Albumin BCP dye [Mass/Vol] 3.9 G/dL Normal 3.2 - 4.8 G/dL ADM SS Albumin/Globulin [Mass ratio] 1.4 {ratio} Normal 0.9 - 1.6 ratio ADM SS ALP [Catalytic activity/Vol] 56 U/L Normal 38 - 126 U/L ADM SS ALT No additional P-5'-P [Catalytic activity/Vol] 79 U/L High 10 - 49 U/L ADM SS AST [Catalytic activity/Vol] 68 U/L High 8 - 34 U/L ADM SS Basophils (Bld) [#/Vol] 0.0 103/mcL Normal 0.0 - 0.3 10^3/mcL Workflow SS Basophils/100 WBC (Bld) 0.6 % Normal 0.0 - 2.5 % Workflow SS Bili Indirect 1.6 mg/dL Normal 0.1 - 10.0 mg/dL Chemistry S Bilirubin [Mass/Vol] 2.20 mg/dL High 0.20 - 1.20 mg/dL ADM SS Comment on above: Interpretive Data: U se of this assay is not recommended for patients undergoing treatment with eltrombopag due to the potential for falsely elevated results. Bilirubin.conjugated [Mass/Vol] 0.6 mg/dL High 0.0 - 0.4 mg/dL ADM SS Comment on above: Interpretive Data: U se of this assay is not recommended for patients undergoing treatment with eltrombopag due to the potential for falsely elevated results. Calcium [Mass/Vol] 10.2 mg/dL Normal 8.7 - 10. 4 mg/dL ADM SS Chloride [Moles/Vol] 109 mmol/L Normal 98 - 11 0 mEq/L ADM SS CO2 [Moles/Vol] 27 mmol/L Normal 22 - 32 mEq/L ADM SS Creatinine [Mass/Vol] 1.02 mg/dL Normal 0.50 - 1.20 mg/dL ADM SS Comment on above: Interpretive Data: T esting performed on [employer] analyzer using enzymatic creatinine methodology. Electrolyte Balance 4.0 mEq/L Normal 4.0 - 15 .0 mEq/L ADM SS Eosinophils (Bld) [#/Vol] 0.1 103/mcL Normal 0.0 - 0.7 10^3/mcL Workflow SS Eosinophils/100 WBC (Bld) 2.1 % Normal 0.0 - 6.0 % Workflow SS Erythrocyte distribution width (RBC) [Ratio] 13.0 % Normal 11.5 - 15.5 % Workflow SS Estimated Glomerular Filtration Rate 58 ml/min/1.73sqm Invalid Interpretation Code Chemistry S Comment on above: Interpretive Data: Stages of Chronic Kidney Disease (CKD) Stage Description eGFR(ml/min/1.73 sq.m.) CKD 1 Normal kidney function or >=90 normal kindney function with possible kidney damage (ex. Proteinuria) CKD 2 Kidney damage with mild loss 60-89 of kidney function CKD 3a Mild to moderate loss of kidney 45-59 function CKD 3b Moderate to severe loss of 30-44 of kindey function CKD 4 Severe loss of kidney function 15-29 CKD 5 Kidney failure <15 Note: (go live 2024) the eGFR calculation was updated to the 2020 CKD-EPI creatinine equation without a race factor to calculate the eGFR results. Ferritin [Mass/Vol] 42.3 ng/mL Normal 8.0 - 25 2.0 ng/mL AH ADM SS Globulin 2.7 G/dL Normal 1.5 - 3.8 G/dL AH ADM SS Glucose [Mass/Vol] 99 mg/dL Normal 82 - 115 mg/dL AH ADM SS Hematocrit (Bld) [Volume fraction] 40.1 % Normal 34.0 - 46.0 % AH Workflow SS Hemoglobin (Bld) [Mass/Vol] 13.7 G/dL Normal 12.0 - 16.0 G/dL AH Workflow SS Lymphocytes (Bld) [#/Vol] 0.9 103/mcL Normal 0.9 - 4.3 10^3/mcL AH Workflow SS Lymphocytes/100 WBC (Bld) 22.4 % Normal 20.0 - 40.0 % AH Workflow SS MCH (RBC) [Entitic mass] 32.1 pg Normal 27.0 - 33.0 pg AH Workflow SS MCHC 34.0 G/dL Normal 32.0 - 36.0 G/dL AH Workflow SS MCV (RBC) [Entitic vol] 94.4 fL Normal 80.0 - 99.0 fL AH Workflow SS Monocytes (Bld) [#/Vol] 0.5 103/mcL Normal 0.1 - 1.4 10^3/mcL AH Workflow SS Monocytes/100 WBC (Bld) 10.7 % Normal 2.0 - 13.0 % AH Workflow SS Neutrophils (Bld) [#/Vol] 2.7 103/mcL Normal 2.3 - 8.1 10^3/mcL AH Workflow SS Neutrophils/100 WBC (Bld) 64.2 % Normal 50.0 - 75.0 % AH Workflow SS Platelet mean volume (Bld) [Entitic vol] 10.9 fL High 6.6 - 10.5 fL AH Workflow SS Platelets (Bld) [#/Vol] 149 103/mcL Low 150 - 450 10^3/mcL AH Workflow SS Potassium [Moles/Vol] 4.6 mmol/L Normal 3.5 - 5.0 mEq/L AH ADM SS Protein [Mass/Vol] 6.6 G/dL Normal 5.7 - 8.2 G/dL AH ADM SS RBC (Bld) [#/Vol] 4.25 106/mcL Normal 4.10 - 5.3 0 10^6/mcL Workflow SS Sodium [Moles/Vol] 140 mmol/L Normal 136 - 145 mEq/L ADM SS Urea nitrogen [Mass/Vol] 28.0 mg/dL High 8.0 - 22.0 mg/dL ADM SS Urea nitrogen/Creatinine [Mass ratio] 27.5 ratio High 10.0 - 22.0 ratio AH ADM SS WBC (Bld) [#/Vol] 4.2 103/mcL Low 4.5 - 10.8 10^3/mcL Workflow SS .GFRon 01-02-2025 Estimated Glomerular Filtration Rate 62 ml/min/1.73sqm Normal [facility] Comment on above: Result Comment: Stages of Chronic Kidney Disease (CKD) Stage Description eGFR(ml/min/1.73 sq.m.) CKD 1 Normal kidney function or >=90 normal kindney function with possible kidney damage (ex. Proteinuria) CKD 2 Kidney damage with mild loss 60-89 of kidney function CKD 3a Mild to moderate loss of kidney 45-59 function CKD 3b Moderate to severe loss of 30-44 of kindey function CKD 4 Severe loss of kidney function 15-29 CKD 5 Kidney failure <15 Note: (go live 2024) the eGFR calculation was updated to the 2020 CKD-EPI creatinine equation without a race factor to calculate the eGFR results. Performed By: #### A 1C, GFR, BMP, ALT, AST #### [facility] [address] [place], [place] [address] A1Con 01-02-2025 Glucose [Mass/Vol] 137 mg/dL Normal [facility] Comment on above: Result Comment: Lauryn mated Average Glucose calculated by equation ((28.7xA1C)-46.7) Estimated average glucose (eAG) is a calculated value from Hemoglobin A1C and is software support representative of the average blood glucose level in the last 2-3 month period. Normal range: less than 114 mg/dL Performed By: #### A 1C, GFR, BMP, ALT, AST #### [place] [address] HbA1c (Bld) [Mass fraction] 6.4 % Normal 4.3-6.4 [facility] Comment on above: Performed By: #### A 1C, GFR, BMP, ALT, AST #### [address] [address] ALT/SGPTon 01-02-2025 ALT [Catalytic activity/Vol] 78 U/L High 14-59 [facility] Comment on above: Performed By: #### A 1C, GFR, BMP, ALT, AST #### [address] [address] Mateusz 01-02-2025 AST [Catalytic activity/Vol] 49 U/L High 10-40 [facility] Comment on above: Performed By: #### A 1C, GFR, BMP, ALT, AST #### [address] [address] BMPon 01-02-2025 BUN/Creatinine Ratio 28 ratio High 7-27 [facility] Comment on above: Performed By: #### A 1C, GFR, BMP, ALT, AST #### [address] [address] Calcium [Mass/Vol] 9.8 mg/dL Normal 8.4-10.2 [facility] Comment on above: Performed By: #### A 1C, GFR, BMP, ALT, AST #### [address] [address] Chloride [Moles/Vol] 105 mmol/L Normal 98-107 [facility] Comment on above: Performed By: #### A 1C, GFR, BMP, ALT, AST #### [address] [address] CO2 [Moles/Vol] 28 mmol/L Normal 23-31 [facility] Comment on above: Performed By: #### A 1C, GFR, BMP, ALT, AST #### [address] [address] Creatinine [Mass/Vol] 0.96 mg/dL Normal 0.55-1.02 [facility] Comment on above: Result Comment: Test ing performed on Siemens Dimension EXL analyzer using a modified kinetic Maria E technique. Performed By: #### A 1C, GFR, BMP, ALT, AST #### [address] [address] Electrolyte Balance 7.0 mEq/L Normal 4.0-15.0 [facility] Comment on above: Performed By: #### A 1C, GFR, BMP, ALT, AST #### [address] [address] Glucose [Mass/Vol] 108 mg/dL Normal 83-110 [facility] Comment on above: Performed By: #### A 1C, GFR, BMP, ALT, AST #### [address] [address] Potassium [Moles/Vol] 4.6 mmol/L Normal 3.5-5.1 [facility] Comment on above: Performed By: #### A 1C, GFR, BMP, ALT, AST #### [address] [address] Sodium [Moles/Vol] 140 mmol/L Normal 136-145 [facility] Comment on above: Performed By: #### A 1C, GFR, BMP, ALT, AST #### [address] [address] Urea nitrogen [Mass/Vol] 27 mg/dL High 7-18 [facility] Comment on above: Performed By: #### A 1C, GFR, BMP, ALT, AST #### [address] [address] LABORATORYOrdered By: SYSTEM SYSTEM on 01-02-2025 ALT With P-5'-P [Catalytic activity/Vol] 78 U/L High 14 - 59 U/L AO ADM SS AST With P-5'-P [Catalytic activity/Vol] 49 U/L High 10 - 40 U/L AO ADM SS Calcium [Mass/Vol] 9.8 mg/dL Normal 8.4 - 10. 2 mg/dL AO ADM SS Chloride [Moles/Vol] 105 mmol/L Normal 98 - 10 7 mmol/L AO ADM SS CO2 [Moles/Vol] 28 mmol/L Normal 23 - 31 mmol/L AO ADM SS Creatinine [Mass/Vol] 0.96 mg/dL Normal 0.55 - 1.02 mg/dL AO ADM SS Comment on above: Interpretive Data: T esting performed on Siemens Dimension EXL analyzer using a modified kinetic Maria E technique. Electrolyte Balance 7.0 mEq/L Normal 4.0 - 15 .0 mEq/L AO ADM SS Estimated Glomerular Filtration Rate 62 ml/min/1.73sqm Invalid Interpretation Code AO Chemistry S Comment on above: Interpretive Data: Stages of Chronic Kidney Disease (CKD) Stage Description eGFR(ml/min/1.73 sq.m.) CKD 1 Normal kidney function or >=90 normal kindney function with possible kidney damage (ex. Proteinuria) CKD 2 Kidney damage with mild loss 60-89 of kidney function CKD 3a Mild to moderate loss of kidney 45-59 function CKD 3b Moderate to severe loss of 30-44 of kindey function CKD 4 Severe loss of kidney function 15-29 CKD 5 Kidney failure <15 Note: (go live 2024) the eGFR calculation was updated to the 2020 CKD-EPI creatinine equation without a race factor to calculate the eGFR results. Glucose [Mass/Vol] 108 mg/dL Normal 83 - 110 mg/dL AO ADM SS Glucose [Mass/Vol] 137 mg/dL Invalid Interpretation Code AO Chemistry S Comment on above: Interpretive Data: E stimated average glucose (eAG) is a calculated value from Hemoglobin A1C and is software support representative of the average blood glucose level in the last 2-3 month period. Normal range: less than 114 mg/dL HbA1c (Bld) [Mass fraction] 6.4 % Normal 4.3 - 6.4 % AO ADM SS Potassium [Moles/Vol] 4.6 mmol/L Normal 3.5 - 5.1 mmol/L AO ADM SS Sodium [Moles/Vol] 140 mmol/L Normal 136 - 145 mmol/L AO ADM SS Urea nitrogen [Mass/Vol] 27 mg/dL High 7 - 18 mg/dL AO ADM SS Urea nitrogen/Creatinine [Mass ratio] 28 ratio High 7 - 27 ratio AO ADM SS Vital Signs Date Time Vital Sign Value Performing Clinician Facility 05-25-2025 11:28-0400 Body height 165.[address] Yunior Ley DO Work Phone: [facility] 05-25-2025 11:28-0400 Body mass index (BMI) [Ratio] 26.3 kg/m2 Dr. Yunior Ley DO Work Phone: [facility] 05-25-2025 11:28-0400 Body weight 71.[address] Yunior Ley DO Work Phone: [facility] 05-25-2025 11:28-0400 Diastolic blood pressure 86 mm[Hg] Dr. Yunior Ley DO Work Phone: [facility] 05-25-2025 11:28-0400 Systolic blood pressure 138 mm[Hg] Dr. Yunior Ley DO Work Phone: [facility] 02-13-2025 04:28-0400 Body temperature 97.52 [degF] GISEL COLUNGA MD [address] [place] [address] 02-13-2025 04:28-0400 Diastolic Blood Pressure Non-Invasive 63 mm[Hg] GISEL COLUNGA MD [address] [place] [address] 02-13-2025 04:28-0400 Heart rate 74 /min GISEL COLUNGA MD [address] [place] [address] 02-13-2025 04:28-0400 Respiratory rate 16 /min GISEL COLUNGA MD [address] [place] [address] 02-13-2025 04:28-0400 Systolic Blood Pressure Non-Invasive 122 mm[Hg] GISEL COLUNGA MD [address] [place] [address] 02-13-2025 02:12-0400 Heart rate 63 /min GISEL COLUNGA MD [address] [place] [address] 02-12-2025 22:30-0400 Heart rate 59 /min GISEL COLUNGA MD [address] [place] [address] 02-12-2025 22:30-0400 Respiratory rate 16 /min GISEL COLUNGA MD [address] [place] [address] 02-12-2025 21:33-0400 Diastolic Blood Pressure Non-Invasive 82 mm[Hg] GISEL COLUNGA MD [address] [place] [address] 02-12-2025 21:33-0400 Systolic Blood Pressure Non-Invasive 155 mm[Hg] GISEL COLUNGA MD [address] [place] [address] 02-12-2025 19:34-0400 Body temperature 97.7 [degF] GISEL COLUNGA MD [address] [place] [address] 02-12-2025 18:22-0400 Diastolic Blood Pressure Non-Invasive 81 mm[Hg] GISEL COLUNGA MD [address] [place] [address] 02-12-2025 18:22-0400 Systolic Blood Pressure Non-Invasive 146 mm[Hg] GISEL COLUNGA MD [address] [place] [address] 02-12-2025 13:05-0400 Body temperature 97.16 [degF] GISEL COLUNGA MD [address] [place] [address] 02-12-2025 12:55-0400 Respiratory Rate - Anes 0 br/min GISEL COLUNGA MD [address] [place] [address] 02-12-2025 12:50-0400 Respiratory Rate - Anes 3 br/min GISEL COLUNGA MD [address] [place] [address] 02-12-2025 12:45-0400 Body temperature 96.55 [degF] GISEL COLUNGA MD [address] [place] [address] 02-12-2025 12:45-0400 Respiratory Rate - Anes 8 br/min GISEL COLUNGA MD [address] [place] [address] 02-12-2025 12:40-0400 Body temperature 96.69 [degF] GISEL COLUNGA MD [address] [place] [address] 02-12-2025 12:35-0400 Body temperature 96.67 [degF] GISEL COLUNGA MD [address] [place] [address] 02-12-2025 10:08-0400 Body height 165.1 cm GISEL COLUNGA MD [address] [place] [address] 02-12-2025 10:08-0400 Body temperature 98.06 [degF] GISEL COLUNGA MD [address] [place] [address] 02-12-2025 10:08-0400 Body weight 72.3 kg GISEL COLUNGA MD [address] [place] [address] 02-12-2025 10:08-0400 Heart rate 67 /min GISEL COLUNGA MD [address] [place] [address] 01-22-2025 13:04-0400 Blood Pressure Location GISEL COLUNGA MD [address] [place] [address] 01-22-2025 13:04-0400 Blood Pressure Method GISEL COLUNGA MD [address] [place] [address] 01-22-2025 13:04-0400 Diastolic Blood Pressure Non-Invasive 78 mm[Hg] GISEL COLUNGA MD [address] [place] [address] 01-22-2025 13:04-0400 Systolic Blood Pressure Non-Invasive 148 mm[Hg] GISEL COLUNGA MD [address] [place] [address] 01-22-2025 12:41-0400 Blood Pressure Location GISEL COLUNGA MD [address] [place] [address] 01-22-2025 12:41-0400 Blood Pressure Method GISEL COLUNGA MD [address] [place] [address] 01-22-2025 12:41-0400 Body height 164 cm GISEL COLUNGA MD [address] [place] [address] 01-22-2025 12:41-0400 Body temperature 98.06 [degF] GISEL COLUNGA MD [address] [place] [address] 01-22-2025 12:41-0400 Body weight 73.3 kg GISEL COLUNGA MD [facility] 01-22-2025 12:41-0400 Body weight 27.25 kg/m2 GISEL COLUNGA MD [facility] 01-22-2025 12:41-0400 Diastolic Blood Pressure Non-Invasive 78 mm[Hg] GISEL COLUNGA MD [facility] 01-22-2025 12:41-0400 Heart rate 59 /min GISEL COLUNGA MD [facility] 01-22-2025 12:41-0400 Systolic Blood Pressure Non-Invasive 164 mm[Hg] GISEL COLUNGA MD [facility] Encounters Encounter Date Encounter Type Care Provider Facility Start: 06-04-2025 ambulatory Coni Blanco Facility:[facility] Start: 05-25-2025 End: 05-25-[address] Yunior Ley DO Work Phone: -[facility] Start: 05-25-2025 End: 05-25-[address] Coni Blanco DO -[facility] Work Phone: Start: 04-15-2025 End: 04-15-2025 Patient encounter procedure Sandra HALE -[facility] Work Phone: Start: 04-15-2025 End: 04-15-[address] Yunior Ley DO Work Phone: [facility] Work Phone: Start: 03-20-2025 End: 03-20-[address] Yunior Ley DO Work Phone: [facility] Work Phone: Start: 03-20-2025 End: 03-20-2025 Patient encounter procedure Sandra HALE -[facility] Work Phone: Start: 03-20-2025 End: 03-20-2025 ambulatory Yunior Ley Facility:[facility] Start: 02-12-2025 End: 02-13-2025 ambulatory GISEL COLUNGA MD Facility:A Start: 02-12-2025 End: 02-13-2025 Observation GISEL COLUNGA MD [facility] Start: 02-11-2025 End: 02-11-2025 Patient encounter procedure Sandra HALE -[facility] Work Phone: Start: 02-11-2025 End: 02-11-2025 ambulatory Yunior Ley Facility:[facility] Start: 2025 End: [address] YUNIOR LEY MD Facility:A Start: 2025 End: 2025 SAME DAY STAY GISEL COLUNGA MD [facility] Start: 01-22-2025 End: 01-22-[address] YUNIOR LEY MD Facility:A Start: 01-22-2025 End: 01-22-[address] YUNIOR LEY MD [facility] Start: 01-22-2025 End: 01-22-2025 Admission to [facility] GISEL COLUNGA MD [facility] Start: 01-22-2025 End: 01-22-[address] YUNIOR LEY MD Facility:A Start: 01-02-2025 End: 01-02-[address] YUNIOR LEY MD Facility:[facility] Start: 01-02-2025 End: 01-02-[address] YUNIOR LEY MD [facility] Procedures Date Procedure Procedure Detail Performing Clinician Cardioversion GISEL Loza Cholecystectomy DR YUNIOR LOPEZ MD Colonoscopy GISEL COLUNGA MD [facility] biopsy of cervix GISEL COLUNGA MD Extraction of wisdom tooth F MELODY COLUNGA MD Ligation of fallopian tube F MELODY COLUNGA MD Plan of Treatment Date Care Activity Detail Author Comprehensive metabo lic 2000 panel - Serum or Plasma [facility] Payers Date Payer Category Payer Self-pay 2024 Unknown [id number] 2024 Unknown [id number] 2015 Unknown [id number] 2001 Medicare [id number] 2001 Unknown [id number] 1950 Unknown [id number] 1950 Unknown [id number] 1950 Unknown [id number] [id number] 1950 Unknown [id number] 2.16.8 [id number] 1950 Unknown [id number] 2.16.8 [id number] Unknown [id number] 2.16.8 [id number] Unknown [id number] 2.16.8 [id number] Unknown [id number] 2.16.8 [id number] Unknown [id number] 2.16.8 [id number] Unknown [id number] 2.16.8 [id number] Social History Date Type Detail Facility Start: 05-26-2020 End: 04-14-2025 Tobacco smoking status Never smoked tobacco (finding) [facility] Sexual O[facility] Start: 1950 Sex Assigned At Female [facility] Start: 10-28-2019 Sex Female (finding) [facility] Functional Status Date Assessment Result [facility] 02-13-2025 Functional Status Independent [facility] 02-13-2025 Functional Status Standard Safety Safety level maintained [facility] 02-13-2025 Functional Status Repositions self [facility] 02-13-2025 Functional Status [facility] 02-13-2025 Functional Status [facility] 02-12-2025 Functional Status Room check performed [facility] 02-12-2025 Functional Status [facility] 02-12-2025 Functional Status [facility] 02-12-2025 Functional Status Identification band [facility] 02-12-2025 Functional Status Maintained [facility] 01-22-2025 Functional Status Sensory Deficits None [facility] Mental Status Date Assessment Result Facility 02-13-2025 Mental Status Oriented x 4 [facility] 02-13-2025 Mental Status [facility] 02-12-2025 Mental Status Orientation Assessment Orie nted x 4 [facility] 02-12-2025 Mental Status [facility] Clinical Notes 12-30-2024 to 02-13-2025 Note Date & Type Note Facility 02-13-2025 Discharge summary Date of Service 02/13/2025 Discharge Diagnosis Persistent atrial fibrillation Hospital Course 75 old female with recurrent persistent atrial fibrillation. She underwent successful pulmonary vein and posterior wall isolation on 02/12/2025 tolerating the procedure well. She will be discharged home to follow-up as an outpatient. A 3-month follow-up is scheduled. Allergies amiodarone Weakness of leg, Photosensitivity Procedures Pulmonary vein and posterior wall isolation. 02/12/2025 Consults No qualifying data available. Physical Exam Vitals and Measurements T: 36.4 C (Oral) TMIN: 36.4 C (Oral) TMAX: 36.5 C (Skin) HR: 74 (Monitored) RR: 16 BP: 122/63 SpO2: 97% Weight Dosing Weight: 72.3 kg (02/12/25) Physical Exam: General: well appearing, no acute distress Respiratory: normal chest wall expansion, CTA B, no r/r/w, no rubs Cardiovascular: RRR, no m/r/g, Normal S1 and S2 Abdomen: Soft, non-tender, non-distended, normal bowel sounds in all quadrants, no hepatosplenomegaly, no tympany Integumentary: warm, dry, and pink, with no rash, purpura, or petechia Neurological: 2+ patellar reflexes, Cranial Nerves II-XII grossly intact, no tics, normal sensation to pressure and light touch Code Status No qualifying data available. Admission Date 02/12/2025 Discharge Date 02/13/2025 Medications Unchanged apixaban (Eliquis 5 mg oral tablet)1 tab(s) by mouth two (2) times a day. Refills: 2. carvedilol (carvedilol 25 mg oral tablet)1 tab(s) by mouth two (2) times a day. Refills: 3. empagliflozin (Jardiance 10 mg oral tablet)1 tab(s) by mouth once a day (in the morning). losartan (losartan 50 mg oral tablet)1 tab(s) by mouth once a day. Refills: 3. metFORMIN (metFORMIN 500 mg oral tablet)1 tab(s) by mouth once a day (in the morning). semaglutide (Ozempic 2 mg/3 mL (0.25 mg or 0.5 mg dose) subcutaneous solution)0.5 Milligram Subcutaneous every week. mondays rotate injection sites. sotalol (sotalol 120 mg oral tablet)1 tab(s) by mouth daily at bedtime. sotalol (sotalol 120 mg oral tablet)1.5 tab(s) by mouth once a day (in the morning). Follow Up Follow Up with GISEL COLUNGA MD When:04/15/2025 11:15 AM EDT Where:[address] [facility] [address] [place] [address]- [phone] Follow Up Appointments No qualifying data available. Follow Up Labs/Studies Discharge Labs No Follow-up Labs Discharge Studies No Follow-up Studies Discharge Diet No qualifying data available. Discharge Activity Discharge Activity - Canceled -- Resume your pre-hospitalization activity, 02/13/25 12:59:00 EDT Condition on Discharge Good Discharge Disposition Home Digitally Signed by GISEL COLUNGA MD on 02/13/2025 05:34 PM [facility] 02-13-2025 Summary of episod e note Discharge Instructions Thank you for allowing [facility] to assist you with your healthcare needs. The following is important discharge information regarding your hospital visit. Your Care Team JIL EDUARDO, YUNIOR Noble What to do next Scheduled Follow-Up Appointments Appointment Type When With Where Contact Information StatusCV OV 04/15/2025 11:15 AM EDT EMIGDIO COLUNGA [facility] Confirmed CV OV 05/13/2025 10:15 AM EDT DONELL JAIMES [facility] Confirmed Follow Up Appointments Follow Up with GISEL COLUNGA MD When:04/15/2025 11:15 AM EDT Where:[address] [facility] [address] [place] [address]- [phone] The Following Activity and Diet Have Been Ordered for You Discharge Activity - Ordered -- Resume your pre-hospitalization activity, 02/13/25 12:59:00 EDT Discharge Diet - Ordered -- No changes were made to your diet during your hospital stay. Please resume your pre hospitalization diet on discharge., 02/13/25 12:59:00 EDT Allergies amiodarone Weakness of leg, Photosensitivity Medications Please ask your primary doctor or pharmacist before taking any other medication not listed, including over the counter drugs, herbal medications, vitamins and or supplements as they may interact with your home medications. What How Much When Instructions Last Dose Unchanged apixaban (Eliquis 5 mg oral tablet) 1 tab(s) by mouth Two (2) times a day Today 02/13/25 at 07:40AM Unchanged carvedilol (carvedilol 25 mg oral tablet) 1 tab(s) by mouth Two (2) times a day Today 02/13/25 at 07:40AM Unchanged empagliflozin (Jardiance 10 mg oral tablet) 1 tab(s) by mouth Once a day (in the morning) Today 02/13/25 at 07:40AM Unchanged losartan (losartan 50 mg oral tablet) 1 tab(s) by mouth Once a day Today 02/13/25 at 07:40AM Unchanged metFORMIN (metFORMIN 500 mg oral tablet) 1 tab(s) by mouth Once a day (in the morning) Today 02/13/25 at 07:40AM Unchanged semaglutide (Ozempic 2 mg/ 3 mL (0.25 mg or 0.5 mg dose) subcutaneous solution) 0.5 Milligram Subcutaneous Every week mondays rotate injection sites None given Unchanged sotalol (sotalol 120 mg oral tablet) 1 tab(s) by mouth Daily at bedtime Unchanged sotalol (sotalol 120 mg oral tablet) 1.5 tab(s) by mouth Once a day (in the morning) Today 02/13/25 at 07:40AM Please take this list to your next doctor s visit. Bring all medications you take, including over the counter medications, herbals and other supplements with you to your doctor s visit. Patients and families are reminded to discard old lists and to update any records with all medication providers or retail pharmacies. Education Materials ELECTROPHYSIOLOGY STUDY/ABLATION Discharge Instructions DIET INSTRUCTIONS Resume diet as prior to procedure ACTIVITIES Do not drive FOR 24 HOURS No heavy lifting GREATER THAN 10 POUNDS or pushing or straining FOR 4 DAYS BATHING/SHOWERING May tub bathe in 4 days Do not sit in hot tub, whirlpool, or swim for 4 days May shower today WOUND CARE Groin: You may go home with a Band-Aid over your procedure site. Keep this Band-Aid on for the next 24 hours and then remove it leaving the site open to air. Left wrist: Keep band aid on site for next 3-4 days Some degree of bruising and tenderness is normal around the procedure site. It will take a while for any bruising to completely resolve. Keep your site clean and dry. You need to report the following to your electrician assistant: Any draining or oozing from the site Any swelling at the site Any increased pain or tenderness at the site Any numbness in your leg where the procedure was done Any sign of infection WATCH FOR SIGNS OF INFECTION: Elevated temperature above 100.5 Redness or swelling Increased pain Foul odor or drainage. If you have any questions, please call your doctor at the number listed on your follow up instructions. Follow all instructions given to you by your physician. Document Released: 10/29/2006 Document Revised: 10/15/2013 Document Reviewed: 10/30/2014 ExitCare Patient Information 2015 [employer]. This information is not intended to replace advice given to you by your health care provider. Make sure you discuss any questions you have with your health care provider. Additional Information VACCINATE! IT SAVES LIVES! Members of the community who have not yet received the COVID-19 vaccine and would like to receive it can visit one of [facility] vaccine clinics. There are many vaccine clinic locations within the [facility]. For locations and available times, please visit https://gettheshot.coronavirus.o cto.gov/. It is important to note that some COVID mobile vaccine clinics are held outdoors and may be canceled in rainy or stormy conditions. To learn more about pediatric vaccinations (ages 5-11), we invite you to visit the [facility] webpage. [email or web address]/p [email or web address] To learn more about the COVID-19 vaccine, we invite you to visit the CDC website for a list of frequently asked questions.https://www.cdc.gov/co ronavirus/2019-ncov/vaccines/faq .html [employer] [facility] Patient Portal Access Instructions: Stay connected with your healthcare team and access your personal medical information anytime with the [employer] Patient Portal. Please follow the directions below to create your [employer] account: 1.Access the email account you provided upon registration to the hospital/physician office.2.Look for an invitation email from [facility].3.Open the email and access the invitation link: Accept Invitation to [facility].4.Fill in the required dumont to create your account. To access your account, visit [email or web address]. Click the blue button labeled "Access Patient Portal" and then log in with the username and password that you created in the steps above. You will be able to view your test results, lab results, a summary of your visits, upcoming appointments and more. There is also a convenient messaging option where you can send secure messages to your provider. In addition, you will have the ability to download any documents or summaries to your computer and/or send the information securely to a physician. Remember that your healthcare information is confidential, so carefully consider who you will allow to register on the [facility] Patient Portal for access to your information. You can also access the [facility] [employer] Patient Portal on the [facility] sally. Simply click on "Patient Portal" and then log into your account. If you would like to receive a full copy of your medical records, please contact the [facility] Medical Records Department by calling [phone], Sunday through Sunday between 8 a.m. and 4:30 p.m. HOW TO SAFELY DISPOSE OF PRESCRIPTION MEDICATIONS Please use one of the following methods to safely dispose of your unused medications. 1.Use a drug disposal kit: the drug disposal pouch allows you to safely discard your old and unused drugs. Ask your nurse to give you one when you are discharged.2.Visit a local take-back location: Many local pharmacies and police departments have programs that collect old and unwanted prescription drugs. Call your local pharmacy or go to http://BioSurplus.Bitex.la/7U1Na9w to find one close to you.3.Make use of household items: Use cat litter or old coffee grounds to dispose medications if other options are not available. Mix your drugs with these household products, seal them in an airtight container and throw it into the garbage. Call [facility]: [phone] to be sure your drugs can be disposed of in this way. Some medicines may require a different approach.4.Never flush your medications down the toilet. IF YOU HAVE BEEN PRESCRIBED AN OPIOID FOR PAIN If you have been prescribed an opioid (such as hydrocodone, oxycodone or morphine), it is critical to understand the possible side effects and risks of opioid pain medications. Even when taken as directed, opioids can have several side effects including: Tolerance, meaning you might need to take more of a medication for the same pain relief. Nausea, vomiting and/or constipation. Sleepiness, dizziness, dry mouth, confusion, depression or itching. Physical dependence, meaning you have withdrawal symptoms when a medication is stopped, can develop within a few days. KNOW YOUR RESPONSIBILITIES It is important to know exactly how much and how often to take the opioid pain medications you are prescribed. Never take opioids in higher amounts or more often than prescribed. Do not combine opioids with alcohol or other drugs that cause drowsiness, such as benzodiazepines, also known as benzos, including diazepam and alprazolam, muscle relaxants or sleep aids. Never sell or share prescription opioids. This is illegal. Store opioids in a secure place and out of reach of others (including children, family, friends and visitors). The last page of this document has been signed and retained as a CHART COPY. Signatures Patient Education Materials 3-- EP Study/Ablation (08/2018)(CUSTOM) Medication Leaflets My discharge plan and instructions have been reviewed and explained to me and I,GILMA RABAGO understand my current condition and have read and understand these discharge instructions. I have received a written copy of the plan/instructions. If I have questions, I am aware that I should contact my doctor. 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: Date/Time: Relationship to Patient: Witness Name/Signature: Date/Time: [facility] 02-13-2025 Hospital Discharg e instructions Patient Education 02/13/2025 04:32:04 3-- EP Study/Ablation (08/2018)(CUSTOM) ELECTROPHYSIOLOGY STUDY/ABLATION Discharge Instructions DIET INSTRUCTIONS Resume diet as prior to procedure ACTIVITIES Do not drive FOR 24 HOURS No heavy lifting GREATER THAN 10 POUNDS or pushing or straining FOR 4 DAYS BATHING/SHOWERING May tub bathe in 4 days Do not sit in hot tub, whirlpool, or swim for 4 days May shower today WOUND CARE Groin: You may go home with a Band-Aid over your procedure site. Keep this Band-Aid on for the next 24 hours and then remove it leaving the site open to air. Left wrist: Keep band aid on site for next 3-4 days Some degree of bruising and tenderness is normal around the procedure site. It will take a while for any bruising to completely resolve. Keep your site clean and dry. You need to report the following to your electrician assistant: Any draining or oozing from the site Any swelling at the site Any increased pain or tenderness at the site Any numbness in your leg where the procedure was done Any sign of infection WATCH FOR SIGNS OF INFECTION: Elevated temperature above 100.5 Redness or swelling Increased pain Foul odor or drainage. If you have any questions, please call your doctor at the number listed on your follow up instructions. Follow all instructions given to you by your physician. Document Released: 10/29/2006 Document Revised: 10/15/2013 Document Reviewed: 10/30/2014 ExitCare Patient Information 2015 [employer]. This information is not intended to replace advice given to you by your health care provider. Make sure you discuss any questions you have with your health care provider. Follow Up Care 2025 10:34:17 With:GISEL COLUNGA MD Address: [address] [place] [address] [facility] [place] [address]- [phone] When:04/15/2025 11:15:00 [facility] 02-13-2025 Note Exam Date Time Procedure Performing Provider Status 02/13/25 3:22 AM Electrocardiogram - EKG - CV SCOTTY VARGAS MD; Auth (Verified) ECG Final Report SINUS RHYTHM NONSPECIFIC T ABNORMALITIES, ANTERIOR LEADS PROLONGED QT INTERVAL Electronic Signature: SCOTTY VARGAS MD 02/13/2025 11:07:51 [id number] Anesthesiology Consult note Patient: GILMA RABAGO Age: 75 years Sex: Female : 1950 Associated Diagnoses: None Author: MARY JANE SOSA MD Postoperative Information Post Operative Info: Post op day: Post Anesthesia Care Unit. Patient location: PACU. Assessment Postanesthesia assessment Vitals: Vital signs from flowsheet : Vital Signs 02/12/2025 13:50 EDT Heart Rate Monitored 61 bpm Respiratory Rate 14 br/min Systolic Blood Pressure Non-Invasive 169 mmHg HI Diastolic Blood Pressure Non-Invasive 77 mmHg 02/12/2025 13:40 EDT Heart Rate Monitored 62 bpm Respiratory Rate 14 br/min Systolic Blood Pressure Non-Invasive 168 mmHg HI Diastolic Blood Pressure Non-Invasive 86 mmHg 02/12/2025 13:15 EDT Heart Rate Monitored 65 bpm Respiratory Rate 16 br/min Systolic Blood Pressure Non-Invasive 161 mmHg HI Diastolic Blood Pressure Non-Invasive 69 mmHg 02/12/2025 13:05 EDT Temperature Skin 36.2 DegC Heart Rate Monitored 63 bpm Respiratory Rate 12 br/min LOW Systolic Blood Pressure Non-Invasive 157 mmHg HI Diastolic Blood Pressure Non-Invasive 73 mmHg 02/12/2025 12:55 EDT Respiratory Rate - Anes 0 br/min br/min 02/12/2025 12:50 EDT Heart Rate Monitored 66 bpm bpm Respiratory Rate - Anes 3 br/min br/min 02/12/2025 12:45 EDT Temperature (Route Not Specified) 35.86 DegC DegC Heart Rate Monitored 64 bpm bpm Respiratory Rate - Anes 8 br/min br/min 02/12/2025 12:40 EDT Temperature (Route Not Specified) 35.94 DegC DegC Heart Rate Monitored 68 bpm bpm Respiratory Rate - Anes 12 br/min br/min 02/12/2025 12:35 EDT Temperature (Route Not Specified) 35.93 DegC DegC Heart Rate Monitored 74 bpm bpm Respiratory Rate - Anes 12 br/min br/min 02/12/2025 12:30 EDT Temperature (Route Not Specified) 35.91 DegC DegC Heart Rate Monitored 75 bpm bpm Respiratory Rate - Anes 12 br/min br/min 02/12/2025 12:25 EDT Temperature (Route Not Specified) 35.91 DegC DegC Heart Rate Monitored 83 bpm bpm Respiratory Rate - Anes 12 br/min br/min 02/12/2025 12:20 EDT Temperature (Route Not Specified) 35.88 DegC DegC Heart Rate Monitored 83 bpm bpm Respiratory Rate - Anes 12 br/min br/min 02/12/2025 12:15 EDT Temperature (Route Not Specified) 35.81 DegC DegC Heart Rate Monitored 74 bpm bpm Respiratory Rate - Anes 12 br/min br/min 02/12/2025 12:10 EDT Temperature (Route Not Specified) 35.9 DegC DegC Heart Rate Monitored 49 bpm bpm Respiratory Rate - Anes 12 br/min br/min 02/12/2025 12:05 EDT Temperature (Route Not Specified) 36 DegC DegC Heart Rate Monitored 50 bpm bpm Respiratory Rate - Anes 12 br/min br/min 02/12/2025 12:00 EDT Temperature (Route Not Specified) 36.11 DegC DegC Heart Rate Monitored 52 bpm bpm Respiratory Rate - Anes 12 br/min br/min 02/12/2025 11:55 EDT Temperature (Route Not Specified) 36.15 DegC DegC Heart Rate Monitored 50 bpm bpm Respiratory Rate - Anes 12 br/min br/min 02/12/2025 11:50 EDT Temperature (Route Not Specified) 36.21 DegC DegC Heart Rate Monitored 51 bpm bpm Respiratory Rate - Anes 12 br/min br/min 02/12/2025 11:45 EDT Temperature (Route Not Specified) 36.31 DegC DegC Heart Rate Monitored 52 bpm bpm Respiratory Rate - Anes 12 br/min br/min 02/12/2025 11:40 EDT Temperature (Route Not Specified) 36.4 DegC DegC Heart Rate Monitored 54 bpm bpm Respiratory Rate - Anes 12 br/min br/min 02/12/2025 11:37 EDT Systolic Blood Pressure Non-Invasive 90 mmHg mmHg Diastolic Blood Pressure Non-Invasive 63 mmHg mmHg 02/12/2025 11:35 EDT Temperature (Route Not Specified) 36.51 DegC DegC Heart Rate Monitored 57 bpm bpm Respiratory Rate - Anes 12 br/min br/min 02/12/2025 11:34 EDT Systolic Blood Pressure Non-Invasive 101 mmHg mmHg Diastolic Blood Pressure Non-Invasive 63 mmHg mmHg 02/12/2025 11:31 EDT Systolic Blood Pressure Non-Invasive 109 mmHg mmHg Diastolic Blood Pressure Non-Invasive 70 mmHg mmHg 02/12/2025 11:30 EDT Temperature (Route Not Specified) 36.61 DegC DegC Heart Rate Monitored 60 bpm bpm Respiratory Rate - Anes 12 br/min br/min 02/12/2025 11:28 EDT Systolic Blood Pressure Non-Invasive 121 mmHg mmHg Diastolic Blood Pressure Non-Invasive 71 mmHg mmHg 02/12/2025 11:25 EDT Temperature (Route Not Specified) 36.73 DegC DegC Heart Rate Monitored 65 bpm bpm Respiratory Rate - Anes 12 br/min br/min Systolic Blood Pressure Non-Invasive 138 mmHg mmHg Diastolic Blood Pressure Non-Invasive 77 mmHg mmHg 02/12/2025 11:23 EDT Systolic Blood Pressure Non-Invasive 167 mmHg mmHg Diastolic Blood Pressure Non-Invasive 84 mmHg mmHg 02/12/2025 11:20 EDT Heart Rate Monitored 73 bpm bpm Respiratory Rate - Anes 11 br/min br/min Systolic Blood Pressure Non-Invasive 187 mmHg mmHg Diastolic Blood Pressure Non-Invasive 95 mmHg mmHg 02/12/2025 11:16 EDT Systolic Blood Pressure Non-Invasive 168 mmHg mmHg Diastolic Blood Pressure Non-Invasive 82 mmHg mmHg 02/12/2025 11:15 EDT Heart Rate Monitored 64 bpm bpm Respiratory Rate - Anes 0 br/min br/min 02/12/2025 11:13 EDT Systolic Blood Pressure Non-Invasive 161 mmHg mmHg Diastolic Blood Pressure Non-Invasive 105 mmHg mmHg 02/12/2025 11:10 EDT Respiratory Rate - Anes 0 br/min br/min 02/12/2025 10:08 EDT Temperature Oral 36.7 DegC Peripheral Pulse Rate 67 bpm Respiratory Rate 16 br/min Systolic Blood Pressure Non-Invasive 183 mmHg HI Diastolic Blood Pressure Non-Invasive 98 mmHg HI . Mental status: at preoperative baseline. Respiratory function: respirations are non-labored, stable. Respiratory support: none. CV function: stable. Cardiovascular support: none. Pain: satisfactory. Nausea status: satisfactory. Postoperative hydration status: within normal limits. Notes: Patient is sufficiently recovered from anesthesia to participate in the evaluation. No follow-up care needed. No complications post-anesthesia.. Digitally Signed by MARY JANE SOSA MD on 02/12/2025 02:13 PM [id number]* Exam Date Time Procedure Performing Provider Status 02/12/25 11:09 AM Ablation CV SYSTEM; Auth (Verifi ed) [id number] Note* Exam Date Time Procedure Performing Provider Status 02/12/25 10:31 AM Electrocardiogram - EKG - CV SCOTTY AKINS MD; Auth (Verified) ECG Final Report SINUS RHYTHM BORDERLINE T WAVE ABNORMALITIES Electronic Signature: SCOTTY VARGAS MD 02/13/2025 11:07:55 [id number] An[facility]hesiology Consult note Patient: GILMA RABAGO Age: 75 years Sex: Female : 1950 Associated Diagnoses: None Author: MARY JANE SOSA MD Preoperative Information Time of last food or liquid consumption: 02/11/2025 18:00:00 Anesthesia history Patient's history: negative. Family's history: negative. Health Status Allergies: Allergic Reactions (All) Severity Not Documented Amiodarone- Photosensitivity and weakness of leg. Canceled/Inactive Reactions (All) NKA, Allergies (1) ActiveSeverityReaction amiodaronePhotosensitivity, Weakness of leg Current medications: (Selected) Inpatient Medications Ordered NS 1,000 mL: 50 mL/hr, Intravenous Prescriptions Prescribed Eliquis 5 mg oral tablet: 5 mg, 1 tab(s), Oral, BID, 180 tab(s), 2 Refill(s) carvedilol 25 mg oral tablet: 25 mg, 1 tab(s), Oral, BID, 180 tab(s), 3 Refill(s) losartan 50 mg oral tablet: 50 mg, 1 tab(s), Oral, qDay, 90 tab(s), 3 Refill(s) Documented Medications Documented Jardiance 10 mg oral tablet: 10 mg, 1 tab(s), Oral, qAM, 0 Refill(s) Ozempic 2 mg/3 mL (0.25 mg or 0.5 mg dose) subcutaneous solution: 0.5 mg, Subcutaneous, qWeek, mondays rotate injection sites, 1 EA, 0 Refill(s) metFORMIN 500 mg oral tablet: 500 mg, 1 tab(s), Oral, qAM, 60 tab(s), 0 Refill(s) sotalol 120 mg oral tablet: 120 mg, 1 tab(s), Oral, qHS, 180 tab(s), 0 Refill(s) sotalol 120 mg oral tablet: 180 mg, 1.5 tab(s), Oral, qAM, 180 tab(s), 0 Refill(s), Medications (1) Active Scheduled: (0) Continuous: (1) NS (0.9% nacl) 1,000 mL 1,000 mL, Intravenous, 50 mL/hr PRN: (0) Problem list: Medical DCM (DILATED CARDIOMYOPATHY) / SNOMED CT 5458568777 / Confirmed HYPERTENSION, ESSENTIAL / SNOMED CT 61424060 / Confirmed HYPERLIPEMIA, MIXED / SNOMED CT 794751731 / Confirmed LEG WEAKNESS, BILATERAL / SNOMED CT 3112508 / Confirmed PAF (PAROXYSMAL ATRIAL FIBRILLATION) / SNOMED CT 676033383 / Confirmed SOB (shortness of breath) / SNOMED CT 976468738 / Confirmed, Active Problems (13) Basal cell carcinoma Cataract DCM (DILATED CARDIOMYOPATHY) Diabetes mellitus type 2 Elevated LFTs Glasses HYPERLIPEMIA, MIXED HYPERTENSION, ESSENTIAL LEG WEAKNESS, BILATERAL On anticoagulant therapy PAF (PAROXYSMAL ATRIAL FIBRILLATION) SOB (shortness of breath) Squamous cell carcinoma in situ Histories Past Medical History: No active or resolved past medical history items have been selected or recorded. Family History: Diabetes mellitus Mother () Atrial fibrillation Mother () Sister Brother Congestive heart failure Father () Mother () HTN - Hypertension Sister Procedure history: Cholecystectomy (74833809). Extraction of wisdom tooth (505025165). Cardioversion (957978446). Tubal ligation (051378528). Conization of uterine cervix (42249200). Colonoscopy (131041989). 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 Airway: Normal temporomandibular joint mobility, Nares patent, Trachea midline. Mallampati classification: II (soft palate, fauces, uvula visible). Head: Normocephalic, Atraumatic. Dentition Evaluation: Intact, Own teeth. Respiratory: Lungs are clear to auscultation. Cardiovascular: Normal rate, Regular rhythm. Neurologic: Alert, Oriented. Review / Management Results review: No qualifying data available , Lab results 02/12/2025 9:53 EDT Antecubital Left 02/12/2025 20 gauge Peripheral IV Activity: Insert new site Peripheral IV Dressing Activity: Applied, Transparent dressing 02/12/2025 9:45 EDT IHC At-Risk Indicator YES 02/12/2025 9:13 EDT IHC At-Risk Indicator YES 02/12/2025 8:18 EDT IHC At-Risk Indicator YES 02/12/2025 5:00 EDT Electrocardiogram - EKG - CV Ordered (In Progress) 02/11/2025 3:39 EDT IHC At-Risk Indicator YES 02/11/2025 1:36 EDT IHC At-Risk Indicator YES . Assessment and Plan [employer] (ASA) physical status classification: Class III. Anesthetic Preoperative Plan Anesthetic technique: General. Induction: intravenously. Maintenance airway: Oral endotracheal tube. Special Monitoring: Arterial line. Postoperative pain management: Per surgeon. Risks discussed: nausea, vomiting, headache, sore throat, dental injury, hypotension, allergic reaction, serious complications. Informed consent: signed by patient. Notes: dilated cardiomyopathy, HTN, paroxsmal atrial fibrillation, Echo (12/30) EF 50-55%, concentric LVH, last dose of sq Ozempic 02/02/25,last HbA1C 6.4% (01/06), type 2 DM (OT 123). Beta Luz Marina: Beta Luz Marina Taken Within 24 Hrs: Yes. Digitally Signed by MARY JANE SOSA MD on 02/12/2025 10:58 AM [id number] Diagnosis Onset Date Resolution Status Admit Date Elevated liver enzymes acute Ap ril 2024 10:24am [facility] Work Phone: 1(111) 117-317504-02-2025 Evaluation note* Diagnosis Onset Date Resolution Status Admit Date Elevated liver enzymes acute Ap ril 2024 10:24am Elevated liver enzymes acute Ju ne 2024 3:03pm [facility] Work Phone: [phone]) 109-807402-18-2025 Hospital Discharge instructions Follow Up Care 12/30/2024 11:44:15 With:GISEL COLUNGA MD Address: [id number] [facility] [place] [address]- [phone] When:04/15/2025 11:15:00 [facility] Evaluation + Plan note Future Appointments Appointment Date:2025 11:00:00 AM Scheduled Provider: Location:Heart Lab Appointment Type:EP Ablation PF-Ensite Appointment Date:02/12/2025 01:15:00 PM Scheduled Provider:JOSE ENRIQUE ROSALES Location:[facility] Appointment Type:CV OV Appointment Date:04/15/2025 11:15:00 AM Scheduled Provider:EMIGDIO COLUNGA Location:[facility] Appointment Type:CV OV [facility] Evaluation + Plan note Future Appointments Appointment Date:2025 11:00:00 AM Scheduled Provider: Location:Heart Lab Appointment Type:EP Ablation PF-Ensite Appointment Date:04/15/2025 11:15:00 AM Scheduled Provider:EMIGDIO COLUNGA Location:[facility] Appointment Type:CV OV [facility] Evaluation + Plan note Future Appointments Appointment Date:02/12/2025 11:00:00 AM Scheduled Provider: Location:Heart Lab Appointment Type:EP Ablation PF-Ensite Appointment Date:04/15/2025 11:15:00 AM Scheduled Provider:EMIGDIO COLUNGA Location:[facility] Appointment Type:CV OV Appointment Date:05/13/2025 10:15:00 AM Scheduled Provider:DONELL JAIMES Location:[facility] Appointment Type:CV OV [facility] Evaluation + Plan note Future Appointments Appointment Date:04/15/2025 11:15:00 AM Scheduled Provider:EMIGDIO COLUNGA Location:[facility] Appointment Type:CV OV Appointment Date:05/13/2025 10:15:00 AM Scheduled Provider:DONELL JAIMES Location:[facility] Appointment Type:CV OV [facility] Hospital course Narrative No data available for this section [facility] Hospital Discharge instructions No data available for this section [facility] Progress note No data available for this section [facility] Reason for referral (narrative)No reason for referral [facility] Work Phone: Summary Purpose Family History Relationship Condition Age at Onset Recorded Date/T hal father Malignant neoplasm of urinary bladder Unk nown Myocardial infarction 86 No Family History Records Found Advance Directives No Advanced Directives Records FoundNo Advanced Directives Records FoundNo Advanced Directives Records Found Chief Complaint and Reason for Visit Chief Complaint Admit Date liver concerns February 11, 2025 10:2 4am [facility] March 20, 2025 10:33a m Reason for Visit Admit Date Elevated liver enzymes February 11, 2025 1 0:24am Chief Complaint Admit Date liver concerns February 11, 2025 10:2 4am E[facility] March 20, 2025 10:33a m Follow up April 15, 2025 3:03p m Reason for Visit Admit Date Elevated liver enzymes February 11, 2025 1 0:24am Elevated liver enzymes April 15, 2025 3: 03pm Chief Complaint Admit Date liver concerns February 11, 2025 10:2 4am EORD[facility] March 20, 2025 10:33a m Follow up April 15, 2025 3:03p m Surgical Consult (KYLE) May 25 11:18am Additional Source Comments Patient Care team informatio n (unrecognized section and content) Team Status: Active Member Role Status Dates Dr. Yunior Ley DO Primary Care Provider Active Team Status: Inactive Member Role Status Dates Dr. Yunior Ley DO Primary Care Provider Active Start: February 11, 2025 End: February 11, 2025 Dr. Yunior Ley DO Referring Provider Active Start: February 11, 2025 End: February 11, 2025 GEOFFREY Toro Attending Provider Active Start: February 11, 2025 End: February 11, 2025 Team Status: Inactive Member Role Status Dates Dr. Yunior Ley DO Primary Care Provider Active Start: March 20, 2025 End: March 20, 2025 GEOFFREY Toro Attending Provider Active Start: March 20, 2025 End: March 20, 2025 GEOFFREY Toro Referring Provider Active Start: March 20, 2025 End: March 20, 2025 Team Status: Inactive Member Role Status Dates Dr. Yunior Ley DO Primary Care Provider Active Start: April 15, 2025 End: April 15, 2025 Dr. Yunior Ley DO Referring Provider Active Start: April 15, 2025 End: April 15, 2025 GEOFFREY Toro Attending Provider Active Start: April 15, 2025 End: April 15, 2025 Team Status: Active Member Role/Relationship Status Dates Dr. Yunior Ley DO Primary Care Provider Active Team Status: Inactive Member Role/Relationship Status Dates Dr. Yunior Ley DO Primary Care Provider Active Start: February 11, 2025 End: February 11, 2025 Dr. Yunior Ley DO Referring Provider Active Start: February 11, 2025 End: February 11, 2025 GEOFFREY Toro Attending Provider Active Start: February 11, 2025 End: February 11, 2025 Team Status: Inactive Member Role/Relationship Status Dates Dr. Yunior Ley DO Primary Care Provider Active Start: March 20, 2025 End: March 20, 2025 GEOFFREY Toro Attending Provider Active Start: March 20, 2025 End: March 20, 2025 Sandra Kwan PA Referring Provider Active Start: March 20, 2025 End: March 20, 2025 Team Status: Inactive Member Role/Relationship Status Dates Dr. Yunior Ley DO Primary Care Provider Active Start: April 15, 2025 End: April 15, 2025 Dr. Yunior Ley DO Referring Provider Active Start: April 15, 2025 End: April 15, 2025 GEOFFREY Toro Attending Provider Active Start: April 15, 2025 End: April 15, 2025 Team Status: Inactive Member Role/Relationship Status Dates Dr. Yunior Ley DO Primary Care Provider Active Start: May 25, 2025 End: May 25, 2025 Dr. Yunior Ley DO Referring Provider Active Start: May 25, 2025 End: May 25, 2025 Dr. Coni Blanco DO Attending Provider Activ e Start: May 25, 2025 End: May 25, 2025 INFORMATION SOURCE (unrecogn ized section and content) DATE CREATED AUTHOR 01/12/2025 [facility] DATE CREATED AUTHOR AUTHOR'S ORGANIZ ATION 02/18/2025 [facility] DATE CREATED AUTHOR AUTHOR'S ORGANIZ ATION 06/03/2025 [facility] Goals (unrecognized section and content) Goals may be documented in a n alternate section FOR RECORDS PERTAINING TO PATIENTS WHO ARE OR HAVE BEEN ENROLLED IN A CHEMICAL DEPENDENCY/SUBSTANCEABUSE PROGRAM, SOME INFORMATION MAY BE OMITTED. This clinical summary was aggregated from multiple sources. Caution should be exercised in using it in the provision of clinical care. This summary normalizes information from multiple sources, and as a consequence, information in this document may materially change the coding, format and clinical context of patient data. In addition, data may be omitted in some cases. CLINICAL DECISIONS SHOULD BE BASED ON THE PRIMARY CLINICAL RECORDS. [employer] provides no warranty or guarantee of the accuracy or completeness of information in this document.
== END | disposition home or self-care (01) ==
PROVIDERS: PCP Family Medicine; Referring Provider Obstetrics & Gynecology; Visit Provider Obstetrics & Gynecology
DX: N81.9 Female genital prolapse, unspecified (principal)
CPT/HCPCS: 76830

== ENCOUNTER → 2025-06-12 | Outpatient (CLI) | payer MEDICARE, SELFPAY ==
--- NOTE | 2025-06-12 07:43 | BI_ITS ---
EXAM: SCRN MAMM (CAD)W/BETH BILAT DATE: 06/12/2025 CLINICAL HISTORY: F, Age 75 y/o , SCREENING TECHNIQUE: SCRN MAMM (CAD)W/BETH BILAT COMPARISON: Prior exam(s) dated 06/03/2024. FINDINGS: TISSUE DENSITY: The breasts are almost entirely fatty. Bilateral Breast Mammographic Findings: No significant masses, calcifications or other abnormalities are identified. BI/SCRN MAMM (CAD)W/BETH BILAT IMPRESSION: There is no mammographic evidence of malignancy. OVERALL FINAL ASSESSMENT BI-RADS 1: NEGATIVE. RECOMMENDATION: Routine annual follow-up in 1 Year A letter with findings and recommendations will be mailed to the patient. Reading Location: [id number]
--- OUTSIDE RECORDS SUMMARY | 2025-06-12 08:01 | XMS RPT_ITS | CCD ---
Author Organization [facility] [employer] Care Team Providers Care Geomorphology Teacher Name Role Phone JIL EDUARDO, DR YUNIOR Noble Primary Care Physician Alexandria LEY MD, DR YUNIOR Noble Attending Yin LEY MD, DR YUNIOR Noble Primary Care Yin LEY MD, DR YUNIOR Noble Primary Care Unavailshruthi COLUNGA MD, GISEL Townsend Attending Unavailable JIL EDUARDO, DR YUNIOR Noble Primary Care Unavailshruthi LEY MD, DR YUNIOR Noble Attending Yin COLUNGA MD, GISEL Townsend Admitting Unavailable KEANU EDUARDO, GISEL Townsend Attending Unavailable JERONIMO TAPER/FINISHER-ROLL ON WORKER, KERRI T Referring Unavail able JIL EDUARDO, DR YUNIOR Noble Primary Care Yin LEY MD, DR YUNIOR Noble Primary Care Unavailshruthi COLUNGA MD, GISEL Townsend Attending Unavailable RODRIGO BORGES MD Referring Unavailable Dr. Yunior Ley DO Primary Care Provider Dr. Yunior Ley DO Referring Provider [phone] Sandra Campa Attending Provider Sandra Campa Referring Provider Dr. Coni Blanco DO Attending Provider Duncan EDUARDO, Dr. Cedillo Attending Provider Dr. Coni Blanco DO Referring Provider Yunior Ley Primary Care Unavailable Yunior Ley Attending Unavailable Yunior Ley Referring Unavailable Sandra Kwan Attending Unavailable Yunior eLy Primary Care Unavailable Yunior Ley Referring Unavailable Yunior Ley Primary Care Unavailable Coni Blanco Attending Yunior De La Torre Referring Unavailable Yunior Ley Primary Care Unavailable Sandra Kwan Attending Unavailable Gloria Leynt Referring Unavailable Jil Yunior Primary Care Unavailable Coni Blanco Attending Coni Vasquez Referring UnavailSandra Mena Attending Unavailable Sandra Kwan Referring Unavailable Jil Yunior Primary Care Unavailable Allergies Allergy Classification Reported Allergen(s) Allergy Type Date of Onset Reaction(s) Facility (8 sources) Amiodarone; Translations: [amiodarone] Drug Allergy 5 Monoparesis - leg (disorder), Photosensitivity (finding) [facility] Comment on above: nose turned purple (1 source) Amiodarone Drug Allergy 5 [facility] Repository (1 source) Unable to Assess Drug allergy (disorder) 5 [facility] Medications Current Medications Medication Drug Class(es) Dates Sig (Normalized) Sig (Original) apixaban 5 mg oral tablet (9 sources) Factor Xa Inhibitor Start: 12-18-2023 take 1 tablet by mouth twice daily Apixaban (Eliquis) 5 mg tablet Active 5 mg PO TWICE A DAY February 04, 2025 12:00am carvedilol 25 mg oral tablet (9 sources) alpha-Adrenergic Luz Marina, beta-Adrenergic Luz Marina Start: 07-15-2024 take 1 tablet by mouth twice daily at mealtime Carvedilol 25 mg tablet Active 25 mg PO TWICE A DAY February 11, 2025 12:00am must administer with a meal/food empagliflozin 10 mg oral tablet (9 sources) Sodium-Glucose Cotransporter 2 Inhibitor Start: 06-12-2024 take 1 tablet by mouth once daily Empagliflozin (Jardiance) 10 mg tablet Active 10 mg PO daily February 11, 2025 12:00am losartan potassium 100 mg oral tablet (9 sources) Angiotensin 2 Receptor Luz Marina Start: 02-04-2025 take 1 tablet by mouth once daily Losartan 100 mg tablet Active 100 mg PO daily February 04, 2025 12:00am Start: 09-15-2024 losartan 50 mg oral tablet Dose : 50 mg = 1 tab(s), Oral, qDay, # 90 tab(s), 3 Refill(s), Pharmacy: [facility], [facility] 165.1, cm, 09/10/24 13:43:00 EDT, Height, kg, 09/10/24 13:43:00 EDT, Dosing Weight Start Date: 09/15/24 Status: Ordered Quantity: 90.0 Unit: tab(s) Repeat number: 4 metFORMIN hydrochloride 500 mg oral tablet (9 sources) Biguanide Start: 05-26-2020 take 1 tablet by mouth once daily Metformin 500 mg tablet Active 500 mg PO daily February 11, 2025 12:00am 0.25 mg, 0.5 mg dose 1.5 ml semaglutide 1.34 mg/ml pen injector (4 sources) Start: 02-04-2025 Semaglutide (Ozempic) 0.25 mg or 0.5 mg(2 mg/1.5 mL) pen injector Active 0.5 mg SC EVERY WEEK February 04, 2025 12:00am sotalol hydrochloride 80 mg oral tablet (15 sources) Antiarrhythmic Start: 05-25-2025 take 1 tablet [...] 1.0 Unit: EA Repeat number: 1 Start: 06-12-2024 inject 0.5 mg by sub cutaneous injection every week Ozempic 2 mg/3 mL (0.25 mg or 0.5 mg dose) subcutaneous solution Dose : 0.25 mg =, Subcutaneous, qWeek, rotate injection sites, # 1 EA, 0 Refill(s) Start Date: 06/12/24 Status: Ordered Quantity: 1.0 Unit: EA Repeat number: 1 metoprolol tartrate 100 mg oral tablet (4 sources) beta-Adrenergic Luz Marina Start: 02-04-2025 End: 02-11-2025 take 1 tablet by mouth once daily Metoprolol Tartrate 100 mg tablet Discontinued 100 mg PO daily February 04, 2025 12:00am February 11, 2025 10:29am rosuvastatin calcium 10 mg oral tablet (7 sources) HMG-CoA Reductase Inhibitor Start: 02-04-2025 End: 02-11-2025 take 1 tablet by mouth once daily Rosuvastatin 10 mg tablet Discontinued 10 mg PO daily February 04, 2025 12:00am February 11, 2025 10:31am Start: 07-09-2024 take 1 tablet by melva th once daily rosuvastatin 10 mg oral tablet 1 tab(s), Oral, qDay, # 90 tab(s), 2 Refill(s), Pharmacy: [facility] 165.1, cm, 06/12/24 13:05:00 [...] lab work through PCP. Other liver diseases (12 sources) Elevated liver enzymes level; Translations: [Abnormal levels of other serum enzymes] 02-11-2025 Episodic Other liver diseases (1 source) Abnormal levels of other serum enzymes; Translations: [Abnormal levels of other serum enzymes] Onset: 04-15-2025 Episodic Other lower respiratory disease (5 sources) Dyspnea 05-26-2020 Episodic Other screening for suspected conditions (not mental disorders or infectious disease) (1 source) Encounter for screening mammogram for malignant neoplasm of breast; Translations: [Encounter for screening mammogram for malignant neoplasm of breast] Onset: 06-10-2025 Episodic Paralysis (5 sources) Paraparesis 05-12-2020 Chronic [...] cardiomyopathy 05-12-2020 Chronic Comment on above: In 2017 patient was diagnosed with cardiomyopathy, EF was 25%. Thought to be tachycardia mediated due to the fact she was in atrial fibrillation with RVR. When she converted back to a sinus rhythm repeat echocardiogram showed an EF of 55%. She is on metoprolol and losartan. Prolapse of female genital organs (3 sources) Cystocele; Translations: [Cystocele, unspecified] Onset: 06-09-2025 05-25-2025 Chronic Residual codes; unclassified (2 sources) Other specified postprocedural states; Translations: [History of cardiac ablation for atrial fibrillation] 05-25-2025 Episodic Results Test Name Value Interpretation Reference Range Facility Transvaginal Non-on 06-04-2025 Transvaginal Non- [facility] Imaging Services [facility] [place], [place] [address] Transvaginal Non- MR#: [id number] Acct: [id number] Name: GILMA RABAGO Rep #: [id number] : 1950 F 75 From: [place] mtz MD PCP: Dr. Yunior Ley MD Status: REG CLI Study: Transvaginal Non- Date of Exam: Exam# [id number] Ordering Dr: Coni Blanco DO PROCEDURE: TRANSVAGINAL NON- 06/04/2025 REASON FOR EXAM: PROLAPSE TECHNIQUE: TRANSVAGINAL NON- COMPARISON: None FINDINGS: Measurements: Uterus: 7.3 cm x 4.9 cm x 3.2 cm with a volume of 59 mL Endometrial Thickness: Endometrium is thickening for the patient's postmenopausal state. It measures 8.2 mm. It is heterogeneous in appearance with fluid and findings suggestive of possible polyps the largest measuring 6 mm x 14 mm x 12 mm. Right Ovary: 1.7 cm x 1.6 cm x 1.1 cm with a volume of 1.61 mL. Left Ovary: The left ovary is not visualized. Uterus: Heterogeneous echotexture suggestive of fibroid change although no focal fibroid is seen. Endometrium: Heterogeneous thickening of the endometrium measuring 8.2 mm with fluid and possible polyps. Clinical correlation recommended. Right ovary: Normal size and echotexture. Left ovary: Not visualized. Other: No large pelvic mass identified. US/Transvaginal Non- IMPRESSION: Heterogeneous thickening of the endometrium as described. Possible polyps. Clinical correlation recommended. Heterogeneous appearance of the uterus suggestive of fibroid change. Reading Location: [id number] CC: Dr. Yunior Ley MD; Dr. Coni Blanco DO Hvac Service Manager: Signed Normal [facility] Lumber Planer Office Visit Reporton 05-25-2025 Lumber Planer Office Visit Report [facility] [address], [address] [place] [address] OFFICE VISIT Date of Service: 05/25/25 MR#: [id number] Acct: [id number] Name: GILMA RABAGO Rep #: [id number] : 1950 Provider: Dr. Coni Funes DO Age/Sex: 75/F Location: [facility] Status: Signed Intake Vital Signs 05/25/25 11:28 Height 5 ft 5 in Weight: 158 lb 6 oz BMI 26.3 BP 138/86 H Intake Visit Reasons: Surgical Consult (DUNCAN) Chief Complaint: Surgical Consult Firearms Inspector Required: No Is patient in pain?: No Allergies amiodarone Allergy (Verified 05/25/25 11:26) Other Medications ???Medication ???Instructions ???Recorded ???Confirmed ???Type apixaban 5 mg tablet (Eliquis) 5 mg PO BID 02/04/25 05/25/25 Hist ory losartan 100 mg tablet 100 mg PO QDAY 02/04/25 05/25/25 H istory semaglutide 0.25 mg or 0.5 mg (2 0.5 mg subcut QWEEK 02/04/2505/25 History mg/1.5 mL) subcutaneous pen injector ([employer]) carvedilol 25 mg tablet 25 mg PO [...] atrial fibrillation History of conization of cervix [place] teeth removed Family History Father Bladder cancer Myocardial infarction, Onset Age: 86 Social History Smoking Status: Never smoker alcohol intake: current alcohol intake frequency: holidays/special occasions only substance use type: does not use what type of physical activity do you participate in: none HPI Surgical Consult (DUNCAN) Details: GILMA RABAGO is a 75 year [...] Likely due to the use of statins. 05/25/25 1727 Date (more content not included)... Normal [facility] Gastroenterology Visit Repor ton 04-15-2025 Gastroenterology Visit Report [facility] [address] [place] [address] OFFICE VISIT Date of Service: 04/15/25 MR#: [id number] Acct: [id number] Name: GILMA RABAGO Rep #: [id number] : 1950 Provider: GEOFFREY Toro Age/Sex: 75/F [place] [facility] Status: Signed Intake Intake Visit Reasons: Follow [...] endometrial ablation History of conization of cervix [place] teeth removed Family History (Updated 04/14/25 @ [...] presents to the office today for f/u. BGI established 4.2.35 for elevated LFTS x1 year. [...] past year?: No 04/15/25 1542 Date Sandra HALE Cosigner Signature: Date (if applicable) CC: Normal [facility] Anion gap in Serum or Plasma Ordered By: Sandra Kwan on 03-20-2025 Anion gap [Moles/Vol] 9 mmol/L 5-15 [facility] BUN/creatinine ratioOrdered By: Sandra Kwan on 03-20-2025 Urea nitrogen/Creatinine [Mass ratio] 24.2 mg/mg High 10-20 [facility] Bilirubin, totalOrdered By: Sandra Kwan on 03-20-2025 Bilirubin [Mass/Vol] 1.65 mg/dL High 0.00-1.30 [facility] Carbon dioxide, total [Moles /volume] in Central venous bloodOrdered By: Sandra Kwan on 03-20-2025 CO2 [Moles/Vol] 25.0 mmol/L 21.0-32.0 [facility] Chloride assayOrdered By: Ying Kwan on 03-20-2025 Chloride [Moles/Vol] 108 mmol/L 98-108 [facility] Comprehensive Metabolic Prof ilon 03-20-2025 Albumin [Mass/Vol] 4.1 g/dL Normal 3.4-4.8 [facility] Comment on above: Performed By: #### L [id number] #### [facility] [address] [place], [address] Albumin/Globulin [Mass ratio] 1.7 {ratio} Normal 0.9-2.4 [facility] Comment on above: Performed By: #### L [id number] #### [facility] [address] [place], [address] ALK PHOS 58 U/L Normal 35-104 [facility] Comment on above: Performed By: #### L [id number] #### [facility] [address] [place], [address] ALT [Catalytic activity/Vol] 42 U/L High <=34 [facility] Comment on above: Performed By: #### [id number] #### [facility] [address] [place], [address] AST [Catalytic activity/Vol] 28 U/L Normal <=31 [facility] Comment on above: Performed By: #### L [id number] #### [facility] [address] [place], [address] Bilirubin [Mass/Vol] 1.65 mg/dL High 0.00-1.30 [facility] Comment on above: Performed By: #### [id number] #### [facility] [address] [place], [address] BUN/CRE 24.2 RATIO High 10-20 [facility] Comment on above: Performed By: #### L [id number] #### [facility] [address] [place], [address] Calcium [Mass/Vol] 9.6 mg/dL Normal 7.6-11.0 [facility] Comment on above: Performed By: #### L [id number] #### [facility] [address] [place], [address] Chloride [Moles/Vol] 108 mmol/L Normal 98-108 [facility] Comment on above: Performed By: #### L [id number] #### [facility] [address] [place], [address] CO2 [Moles/Vol] 25.0 mmol/L Normal 21.0-32.0 [facility] Comment on above: Performed By: #### L [id number] #### [facility] [address] [place], [address] Creatinine [Mass/Vol] 1.04 mg/dL Normal 0.70-1.20 [facility] Comment on above: Performed By: #### L [id number] #### [facility] [address] [place], [address] GAP 9 Normal 5-15 [facility] Comment on above: Performed By: #### L [id number] #### [facility] [address] [place], [address] GFR/1.73 sq M.predicted among non-blacks MDRD (S/P/Bld) [Vol rate/Area] 56 mL/min/{1.73_m2} Low >60 [facility] Comment on above: Result Comment: mL/m in/1.73m2 CKD-EPI Creatinine Equation (2020) Performed By: #### L [id number] #### [facility] [address] [place], [address] Globulin (S) [Mass/Vol] 2.5 g/dL Normal 2.2-4.2 [facility] Comment on above: Performed By: #### L [id number] #### [facility] [address] [place], [address] Glucose [Mass/Vol] 157 mg/dL High 70-99 [facility] Comment on above: Performed By: #### L [id number] #### [facility] [address] [place], [address] Potassium [Moles/Vol] 4.3 mmol/L Normal 3.3-5.1 [facility] Comment on above: Performed By: #### L [id number] #### [facility] [address] [place], [address] Sodium [Moles/Vol] 143 mmol/L Normal 133-145 [facility] Comment on above: Performed By: #### L [id number] #### [facility] [address] [place], [address] T PROT 6.5 g/dL Normal 5.9-8.4 [facility] Comment on above: Performed By: #### L [id number] #### [facility] [address] [place], [address] Urea nitrogen [Mass/Vol] 25 mg/dL High 4-19 [facility] Comment on above: Performed By: #### L [id number] #### [facility] [address] [place], [address] Glomerular filtration rate ( GFR) estimation/1.73 sq m using serum, plasma, or whole bOrdered By: Sandra Kwan on 03-20-2025 GFR/1.73 sq M.predicted among non-blacks MDRD (S/P/Bld) [Vol rate/Area] 56 mL/min/{1.73_m2} Low >60 [facility] Comment on above: mL/min/1.73m2 CKD-EP I Creatinine Equation (2020) Laboratory - Chemistry and C hemistry - challengeOrdered By: Sandra Kwan on 03-20-2025 AST [Catalytic activity/Vol] 28 U/L <32 [facility] Potassium measurement (mass/ volume)Ordered By: Sandra Kwan on 03-20-2025 Potassium (Unsp spec) [Mass/Vol] 4.3 mmol/L 3.3-5.1 [facility] Serum creatinine measurement (mass/volume)Ordered By: Sandra Kwan on 03-20-2025 Creatinine [Mass/Vol] 1.04 mg/dL 0.70-1.20 [facility] Serum globulin measurementOr dered By: Sandra Kwan on 03-20-2025 Globulin (S) [Mass/Vol] 2.5 g/dL 2.2-4.2 [facility] Serum glucose measurement (m ass/volume)Ordered By: Sandra Kwan on 03-20-2025 Glucose [Mass/Vol] 157 mg/dL High 70-99 [facility] Serum or plasma alanine honeycutt otransferase (ALT) measurementOrdered By: Sandra Kwan on 03-20-2025 ALT [Catalytic activity/Vol] 42 U/L High <35 [facility] Serum or plasma albumin hari urement (mass/volume)Ordered By: Sandra Kwan on 03-20-2025 Albumin [Mass/Vol] 4.1 g/dL 3.4-4.8 [facility] Serum or plasma albumin/glob ulin mass ratioOrdered By: Sandra Kwan on 03-20-2025 Albumin/Globulin [Mass ratio] 1.7 {ratio} 0.9-2.4 [facility] Serum or plasma alkaline mame sphatase measurementOrdered By: Sandra Kwan on 03-20-2025 ALP [Catalytic activity/Vol] 58 U/L 35-104 [facility] Serum or plasma calcium hari urement (mass/volume)Ordered By: Sandra Kwan on 03-20-2025 Calcium [Mass/Vol] 9.6 mg/dL 7.6-11.0 [facility] Serum or plasma urea nitroge n measurement (mass/volume)Ordered By: Sandra Kwan on 03-20-2025 Urea nitrogen [Mass/Vol] 25 mg/dL High 4-19 [facility] Sodium levelOrdered By: June Kwan on 03-20-2025 Sodium [Moles/Vol] 143 mmol/L 133-145 [facility] Total proteinOrdered By: Dory Kwan on 03-20-2025 Protein [Mass/Vol] 6.5 g/dL 5.9-8.4 [facility] .GFRon 02-13-2025 Estimated Glomerular Filtration Rate 52 ml/min/1.73sqm Normal [facility] Comment on above: Result Comment: Stages [...] G FR, BMP, CBC, ANEU, ADIFF #### [address] [address] BMPon 02-13-2025 BUN/Creatinine Ratio 26.4 ratio High 10.0-22.0 [facility] Comment on above: Performed By: #### G FR, BMP, CBC, ANEU, ADIFF #### [address] [address] Calcium [Mass/Vol] 8.8 mg/dL Normal 8.7-10.4 [facility] Comment on above: Performed By: #### G FR, BMP, CBC, ANEU, ADIFF #### [address] [address] Chloride [Moles/Vol] 109 mmol/L Normal 98-110 [facility] Comment on above: Performed By: #### G FR, BMP, CBC, ANEU, ADIFF #### [address] [address] CO2 [Moles/Vol] 25 mmol/L Normal 22-32 [facility] Comment on above: Performed By: #### G FR, BMP, CBC, ANEU, ADIFF #### [address] [address] Creatinine [Mass/Vol] 1.10 mg/dL Normal 0.50-1.[address] [facility] Comment on above: Result Comment: Test ing performed on [employer] analyzer using enzymatic creatinine methodology. Performed By: #### G FR, BMP, CBC, ANEU, ADIFF #### [address] [address] Electrolyte Balance 8.0 mEq/L Normal 4.0-15.0 [facility] Comment on above: Performed By: #### G FR, BMP, CBC, ANEU, ADIFF #### [address] [address] Glucose [Mass/Vol] 226 mg/dL High 82-115 [facility] Comment on above: Performed By: #### G FR, BMP, CBC, ANEU, ADIFF #### [address] [address] Potassium [Moles/Vol] 4.2 mmol/L Normal 3.5-5.[address] [facility] Comment on above: Performed By: #### G FR, BMP, CBC, ANEU, ADIFF #### [address] [address] Sodium [Moles/Vol] 142 mmol/L Normal 136-145 [facility] Comment on above: Performed By: #### G FR, BMP, CBC, ANEU, ADIFF #### [address] [address] Urea nitrogen [Mass/Vol] 29.0 mg/dL High 8.0-22.0 [facility] Comment on above: Performed By: #### G FR, BMP, CBC, ANEU, ADIFF #### [facility] [address] [place] [address] LABORATORYOrdered By: SYSTEM SYSTEM on 02-13-2025 Calcium [Mass/Vol] 8.8 mg/dL Normal 8.7 - 10. 4 mg/dL ADM SS Chloride [Moles/Vol] 109 mmol/L Normal 98 - 11 0 mEq/L ADM SS CO2 [Moles/Vol] 25 mmol/L Normal 22 - 32 mEq/L ADM SS Creatinine [Mass/Vol] 1.10 mg/dL Normal 0.50 - 1.20 mg/dL ADM SS Comment on above: Interpretive Data: T esting performed on [employer] analyzer using enzymatic creatinine methodology. Electrolyte Balance 8.0 mEq/L Normal 4.0 - 15 .0 mEq/L ADM SS Estimated Glomerular Filtration Rate 52 [...] 226 mg/dL High 82 - 115 mg/dL AH ADM SS Potassium [Moles/Vol] 4.2 mmol/L Normal 3.5 - 5.0 mEq/L AH ADM SS Sodium [Moles/Vol] 142 mmol/L Normal 136 - 145 mEq/L AH ADM SS Urea nitrogen [Mass/Vol] 29.0 mg/dL High 8.0 - 22.0 mg/dL ADM SS Urea nitrogen/Creatinine [Mass ratio] 26.4 ratio High 10.0 - 22.0 ratio ADM SS .Auto Diffon 02-12-2025 Basophil, Absolute 0.0 10 3/mcL Normal 0.0-0.3 [facility] Comment on above: Performed By: #### A JANES, GFR, ADIFF, BMP, ABSGEL, ABOGEL, CBC #### [address] [address] Basophils/100 WBC (Bld) 0.4 % Normal 0.0-2.5 [facility] Comment on above: Performed By: #### A JANES, GFR, ADIFF, BMP, ABSGEL, ABOGEL, CBC #### [address] [address] Eosinophil, Absolute 0.1 10 3/mcL Normal 0.0-0.7 [facility] Comment on above: Performed By: #### A JANES, GFR, ADIFF, BMP, ABSGEL, ABOGEL, CBC #### [address] [address] Eosinophils/100 WBC (Bld) 2.8 % Normal 0.0-6.0 [facility] Comment on above: Performed By: #### A JANES, GFR, ADIFF, BMP, ABSGEL, ABOGEL, CBC #### [address] [address] Lymphocyte, Absolute 0.9 10 3/mcL Normal 0.9-4.3 [facility] Comment on above: Performed By: #### A JANES, GFR, ADIFF, BMP, ABSGEL, ABOGEL, CBC #### [address] [address] Lymphocytes/100 WBC (Bld) 21.0 % Normal 20.0-40.0 [facility] Comment on above: Performed By: #### A JANES, GFR, ADIFF, BMP, ABSGEL, ABOGEL, CBC #### [address] [address] Monocyte, Absolute 0.6 10 3/mcL Normal 0.1-1.4 [facility] Comment on above: Performed By: #### A JANES, GFR, ADIFF, BMP, ABSGEL, ABOGEL, CBC #### [address] [address] Monocytes/100 WBC (Bld) 13.1 % High 2.0-13.0 [facility] Comment on above: Performed By: #### A JANES, GFR, ADIFF, BMP, ABSGEL, ABOGEL, CBC #### [address] [address] Neutrophils/100 WBC (Bld) 62.7 % Normal 50.0-75.0 [facility] Comment on above: Performed By: #### A JANES, GFR, ADIFF, BMP, ABSGEL, ABOGEL, CBC #### [address] [address] .GFRon 02-12-2025 Estimated Glomerular Filtration Rate 53 ml/min/1.73sqm Normal [facility] Comment on above: Result Comment: Stages [...] GFR, ADIFF, BMP, ABSGEL, ABOGEL, CBC #### [address] [address] .NEUABSon 02-12-2025 Neutrophil, Absolute 2.7 10 3/mcL Normal 2.3-8.1 [facility] Comment on above: Performed By: #### A JANES, GFR, ADIFF, BMP, ABSGEL, ABOGEL, CBC #### [address] [address] ABO/Rh (Gel)on 02-12-2025 ABO/Rh Interp Positive Invalid Interpretation Code [facility] Comment on above: Performed By: #### G FR, BMP, CBC, ANEU, ADIFF #### [address] [address] ABS (Gel)on 02-12-2025 ABSC Interp (Gel) Negative Normal [facility] Comment on above: Performed By: #### G FR, BMP, CBC, ANEU, ADIFF #### [address] [address] APTTon 02-12-2025 aPTT Coag (Bld) [Time] 31.6 s Normal 25.0-35.0 [facility] Comment on above: Result Comment: For Heparin anticoagulation therapy, the recommended therapeutic range is: 54-77 seconds (APTT Correlation with Anti-Xa therapeutic range of 0.3-0.7 units/ml). PLEASE REFERENCE THE PHARMACY PROTOCOL FOR DOSING. Performed By: #### G FR, BMP, CBC, ANEU, ADIFF #### [address] [address] BMPon 02-12-2025 BUN/Creatinine Ratio 19.3 ratio Normal 10.0-22.0 [facility] Comment on above: Performed By: #### A JANES, GFR, ADIFF, BMP, ABSGEL, ABOGEL, CBC #### [address] [address] Calcium [Mass/Vol] 9.3 mg/dL Normal 8.7-10.4 [facility] Comment on above: Performed By: #### A JANES, GFR, ADIFF, BMP, ABSGEL, ABOGEL, CBC #### [address] [address] Chloride [Moles/Vol] 108 mmol/L Normal 98-110 [facility] Comment on above: Performed By: #### A JANES, GFR, ADIFF, BMP, ABSGEL, ABOGEL, CBC #### [address] [address] CO2 [Moles/Vol] 32 mmol/L Normal 22-32 [facility] Comment on above: Performed By: #### A JANES, GFR, ADIFF, BMP, ABSGEL, ABOGEL, CBC #### [address] [address] Creatinine [Mass/Vol] 1.09 mg/dL Normal 0.50-1.[address] [facility] Comment on above: Result Comment: Test ing performed on SidelineSwap analyzer using enzymatic creatinine methodology. Performed By: #### A JANES, GFR, ADIFF, BMP, ABSGEL, ABOGEL, CBC #### [address] [address] Electrolyte Balance 2.0 mEq/L Low 4.0-15.0 [facility] Comment on above: Performed By: #### A JANES, GFR, ADIFF, BMP, ABSGEL, ABOGEL, CBC #### [address] [address] Glucose [Mass/Vol] 123 mg/dL High 82-115 [facility] Comment on above: Performed By: #### A JANES, GFR, ADIFF, BMP, ABSGEL, ABOGEL, CBC #### [address] [address] Potassium [Moles/Vol] 4.0 mmol/L Normal 3.5-5.[address] [facility] Comment on above: Performed By: #### A JANES, GFR, ADIFF, BMP, ABSGEL, ABOGEL, CBC #### [address] [address] Sodium [Moles/Vol] 142 mmol/L Normal 136-145 [facility] Comment on above: Performed By: #### A JANES, GFR, ADIFF, BMP, ABSGEL, ABOGEL, CBC #### [address] [address] Urea nitrogen [Mass/Vol] 21.0 mg/dL Normal 8.0-22.0 [facility] Comment on above: Performed By: #### A JANES, GFR, ADIFF, BMP, ABSGEL, ABOGEL, CBC #### [address] [address] CBCon 02-12-2025 Erythrocyte distribution width (RBC) [Ratio] 12.8 % Normal 11.5-15.5 [facility] Comment on above: Performed By: #### A JANES, GFR, ADIFF, BMP, ABSGEL, ABOGEL, CBC #### [place] [id number] Hematocrit (Bld) [Volume fraction] 41.5 % Normal 34.0-46.0 [facility] Comment on above: Performed By: #### A JANES, GFR, ADIFF, BMP, ABSGEL, ABOGEL, CBC #### [address] [address] Hgb 14.4 G/dL Normal 12.0-16.0 [facility] Comment on above: Performed By: #### A JANES, GFR, ADIFF, BMP, ABSGEL, ABOGEL, CBC #### [address] [address] MCH (RBC) [Entitic mass] 32.7 pg Normal 27.0-33.0 [facility] Comment on above: Performed By: #### A JANES, GFR, ADIFF, BMP, ABSGEL, ABOGEL, CBC #### [place] [id number] MCHC 34.6 G/dL Normal 32.0-36.0 [facility] Comment on above: Performed By: #### A JANES, GFR, ADIFF, BMP, ABSGEL, ABOGEL, CBC #### [place] [id number] MCV (RBC) [Entitic vol] 94.5 fL Normal 80.0-99.0 [facility] Comment on above: Performed By: #### A JANES, GFR, ADIFF, BMP, ABSGEL, ABOGEL, CBC #### [place] [id number] Platelet 150 10 3/mcL Normal 150-450 [facility] Comment on above: Performed By: #### A JANES, GFR, ADIFF, BMP, ABSGEL, ABOGEL, CBC #### [place] [id number] Platelet mean volume (Bld) [Entitic vol] 10.9 fL High 6.6-10.5 [facility] Comment on above: Performed By: #### A JANES, GFR, ADIFF, BMP, ABSGEL, ABOGEL, CBC #### [place] [address] RBC 4.39 10 6/mcL Normal 4.10-5.30 [facility] Comment on above: Performed By: #### A JANES, GFR, ADIFF, BMP, ABSGEL, ABOGEL, CBC #### [place] [address] WBC 4.3 10 3/mcL Low 4.5-10.8 [facility] Comment on above: Performed By: #### A JANES, GFR, ADIFF, BMP, ABSGEL, ABOGEL, CBC #### [place] [address] FIBon 02-12-2025 Fibrinogen 373 mg/dL Normal 250-560 [facility] Comment on above: Performed By: #### G FR, BMP, CBC, ANEU, ADIFF #### [place] [address] LABORATORYOrdered By: Amos Gray on 02-12-2025 ABO and Rh group Nom (Bld) Blood group A Rh(D) positive Invalid Interpretation Code AH BB Auto SS Blood group antibody screen Ql Negative ABSC (02/12/25 9:50 AM) Normal AH BB Auto SS LABORATORYOrdered By: SYSTEM SYSTEM on 02-12-2025 aPTT Coag (Bld) [Time] [...] 0.4 % Normal 0.0 - 2.5 % AH Workflow SS Calcium [Mass/Vol] 9.3 mg/dL Normal 8.7 - 10. 4 mg/dL AH ADM SS Chloride [Moles/Vol] 108 mmol/L Normal 98 - 11 0 mEq/L AH ADM SS CO2 [Moles/Vol] 32 mmol/L Normal 22 - 32 mEq/L AH ADM SS Creatinine [Mass/Vol] 1.09 mg/dL Normal 0.50 - 1.20 mg/dL AH ADM SS Comment on above: Interpretive Data: T esting performed on SidelineSwap analyzer using enzymatic creatinine methodology. Electrolyte Balance 2.0 mEq/L Low 4.0 - 15 .0 mEq/L ADM SS Eosinophils (Bld) [#/Vol] 0.1 103/mcL Normal 0.0 - 0.7 10^3/mcL Workflow SS Eosinophils/100 WBC (Bld) 2.8 % Normal 0.0 - 6.0 % Workflow SS Erythrocyte distribution width (RBC) [Ratio] 12.8 % Normal 11.5 - 15.5 % Workflow SS Estimated Glomerular Filtration Rate 53 [...] 41.5 % Normal 34.0 - 46.0 % Workflow SS Hemoglobin (Bld) [Mass/Vol] 14.4 G/dL Normal 12.0 - 16.0 G/dL Workflow SS Lymphocytes (Bld) [#/Vol] 0.9 103/mcL Normal 0.9 - 4.3 10^3/mcL Workflow SS Lymphocytes/100 WBC (Bld) 21.0 % Normal 20.0 - 40.0 % Workflow SS MCH (RBC) [Entitic mass] 32.7 pg Normal 27.0 - 33.0 pg Workflow SS MCHC 34.6 G/dL Normal 32.0 - 36.0 G/dL Workflow SS MCV (RBC) [Entitic vol] 94.5 fL Normal 80.0 - 99.0 fL Workflow SS Monocytes (Bld) [#/Vol] 0.6 103/mcL Normal 0.1 - 1.4 10^3/mcL Workflow SS Monocytes/100 WBC (Bld) 13.1 % High 2.0 - 13.0 % Workflow SS Neutrophils (Bld) [#/Vol] 2.7 103/mcL [...] s Normal 9.0 - 1 4.4 seconds [facility] Comment on above: Interpretive Data: E ffective 05/26/08, Protime results may be affected by some antibiotics (i.e. Ciprofloxacin, Azithromycin, Bactrim) which may potentiate the action of oral anticoagulants, with further increases in Protime/INR. PT International Ratio 1.1 ratio Invalid Interpretation Code [facility] Comment on above: Interpretive Data: Brittany bosch [employer] (CHEST, 1991, 102:312S-25S) recommended therapeutic range for oral anticoagulant therapy is: LOW RISK: Prophylaxis of venous thrombosis INR: 2.0-3.0 Treatment of pulmonary embolism 2.0-3.0 Prevention of systemic embolism 2.0-3.0 HIGH RISK: Mechanical prosthetic valves 2.5-3.5 RBC (Bld) [#/Vol] 4.39 106/mcL Normal 4.10 - 5.3 0 10^6/mcL Workflow SS Sodium [Moles/Vol] 142 mmol/L Normal 136 - 145 mEq/L AH ADM SS Urea nitrogen [Mass/Vol] 21.0 mg/dL Normal 8.0 - 22.0 mg/dL AH ADM SS Urea nitrogen/Creatinine [Mass ratio] 19.3 ratio Normal 10.0 - 22.0 ratio AH ADM SS WBC (Bld) [#/Vol] 4.3 103/mcL Low 4.5 - 10.8 10^3/mcL AH Workflow SS PROon 02-12-2025 INR Coag (PPP) [Relative time] 1.1 {INR} Normal [facility] Comment on above: Result Comment: [employer] (CHEST, 1992, 102:312S-25S) recommended therapeutic range for oral anticoagulant therapy is: LOW RISK: Prophylaxis of venous thrombosis INR: 2.0-3.0 Treatment of pulmonary embolism 2.0-3.0 Prevention of systemic embolism 2.0-3.0 HIGH RISK: Mechanical prosthetic valves 2.5-3.5 Performed By: #### G FR, BMP, CBC, ANEU, ADIFF #### [place] [id number] [place] [address] PT Coag (PPP) [Time] 12.2 s Normal 9.0-14.4 [facility] Comment on above: Result Comment: Effe ctive 05/26/08, Protime results may be affected by some antibiotics (i.e. Ciprofloxacin, Azithromycin, Bactrim) which may potentiate the action of oral anticoagulants, with further increases in Protime/INR. Performed By: #### G FR, BMP, CBC, ANEU, ADIFF #### [place] [address] [place] [address] Gastroenterology Visit Repor ton 02-11-2025 Gastroenterology Visit Report [facility] Gastroenterology [address] [place] [address] OFFICE VISIT Date of Service: 02/11/25 MR#: [id number] Acct: [id number] Name: GILMA RABAGO Rep #: [id number] : 1950 Provider: GEOFFREY Toro Age/Sex: 75/F [place] [facility] Status: Signed Intake Intake Visit Reasons: liver [...] 02.11.25 Pt here to establish care with [facility] with Liver concers. Pt reports colonoscopy 15 years ago. HPI HPI Chief Complaint: elevated liver enzymes Details: GILMA RABAGO, is a 75 F who presents to the office today for establishment with I. Pt has had intermittent elevated liver enzymes [...] Sandra Pretty Signature: Date (if applicable) CC: [facility] .Auto Diffon 01-22-2025 Basophil, Absolute 0.0 10 3/mcL Normal 0.0-0.3 [facility] Comment on above: Performed By: #### G FR, BMP, CBC, ANEU, ADIFF #### [address] [address] Basophils/100 WBC (Bld) 0.6 % Normal 0.0-2.5 [facility] Comment on above: Performed By: #### G FR, BMP, CBC, ANEU, ADIFF #### [address] [address] Eosinophil, Absolute 0.1 10 3/mcL Normal 0.0-0.7 [facility] Comment on above: Performed By: #### G FR, BMP, CBC, ANEU, ADIFF #### [address] [address] Eosinophils/100 WBC (Bld) 2.1 % Normal 0.0-6.0 [facility] Comment on above: Performed By: #### G FR, BMP, CBC, ANEU, ADIFF #### [address] [address] Lymphocyte, Absolute 0.9 10 3/mcL Normal 0.9-4.3 [facility] Comment on above: Performed By: #### G FR, BMP, CBC, ANEU, ADIFF #### [address] [address] Lymphocytes/100 WBC (Bld) 22.4 % Normal 20.0-40.0 [facility] Comment on above: Performed By: #### G FR, BMP, CBC, ANEU, ADIFF #### [address] [address] Monocyte, Absolute 0.5 10 3/mcL Normal 0.1-1.4 [facility] Comment on above: Performed By: #### G FR, BMP, CBC, ANEU, ADIFF #### [address] [address] Monocytes/100 WBC (Bld) 10.7 % Normal 2.0-13.0 [facility] Comment on above: Performed By: #### G FR, BMP, CBC, ANEU, ADIFF #### [address] [address] Neutrophils/100 WBC (Bld) 64.2 % Normal 50.0-75.0 [facility] Comment on above: Performed By: #### G FR, BMP, CBC, ANEU, ADIFF #### [address] [address] .GFRon 01-22-2025 Estimated Glomerular Filtration Rate 58 ml/min/1.73sqm Normal [facility] Comment on above: Result Comment: Stages [...] G FR, BMP, CBC, ANEU, ADIFF #### [address] [address] .NEUABSon 01-22-2025 Neutrophil, Absolute 2.7 10 3/mcL Normal 2.3-8.1 [facility] Comment on above: Performed By: #### G FR, BMP, CBC, ANEU, ADIFF #### [address] [address] BMPon 01-22-2025 BUN/Creatinine Ratio 27.5 ratio High 10.0-22.0 [facility] Comment on above: Performed By: #### G FR, BMP, CBC, ANEU, ADIFF #### [address] [address] Calcium [Mass/Vol] 10.2 mg/dL Normal 8.7-10.4 [facility] Comment on above: Performed By: #### G FR, BMP, CBC, ANEU, ADIFF #### [address] [address] Chloride [Moles/Vol] 109 mmol/L Normal 98-110 [facility] Comment on above: Performed By: #### G FR, BMP, CBC, ANEU, ADIFF #### [address] [address] CO2 [Moles/Vol] 27 mmol/L Normal 22-32 [facility] Comment on above: Performed By: #### G FR, BMP, CBC, ANEU, ADIFF #### [address] [address] Creatinine [Mass/Vol] 1.02 mg/dL Normal 0.50-1.[address] [facility] Comment on above: Result Comment: Test ing performed on SidelineSwap analyzer using enzymatic creatinine methodology. Performed By: #### G FR, BMP, CBC, ANEU, ADIFF #### [address] [address] Electrolyte Balance 4.0 mEq/L Normal 4.0-15.0 [facility] Comment on above: Performed By: #### G FR, BMP, CBC, ANEU, ADIFF #### [address] [address] Glucose [Mass/Vol] 99 mg/dL Normal 82-115 [facility] Comment on above: Performed By: #### G FR, BMP, CBC, ANEU, ADIFF #### [address] [address] Potassium [Moles/Vol] 4.6 mmol/L Normal 3.5-5.[address] [facility] Comment on above: Performed By: #### G FR, BMP, CBC, ANEU, ADIFF #### [address] [address] Sodium [Moles/Vol] 140 mmol/L Normal 136-145 [facility] Comment on above: Performed By: #### G FR, BMP, CBC, ANEU, ADIFF #### [address] [address] Urea nitrogen [Mass/Vol] 28.0 mg/dL High 8.0-22.0 [facility] Comment on above: Performed By: #### G FR, BMP, CBC, ANEU, ADIFF #### [place] [id number] CBCon 01-22-2025 Erythrocyte distribution width (RBC) [Ratio] 13.0 % Normal 11.5-15.5 [facility] Comment on above: Performed By: #### G FR, BMP, CBC, ANEU, ADIFF #### [place] [address] Hematocrit (Bld) [Volume fraction] 40.1 % Normal 34.0-46.0 [facility] Comment on above: Performed By: #### G FR, BMP, CBC, ANEU, ADIFF #### [place] [address] Hgb 13.7 G/dL Normal 12.0-16.0 [facility] Comment on above: Performed By: #### G FR, BMP, CBC, ANEU, ADIFF #### [place] [address] MCH (RBC) [Entitic mass] 32.1 pg Normal 27.0-33.0 [facility] Comment on above: Performed By: #### G FR, BMP, CBC, ANEU, ADIFF #### [place] [address] MCHC 34.0 G/dL Normal 32.0-36.0 [facility] Comment on above: Performed By: #### G FR, BMP, CBC, ANEU, ADIFF #### [place] [address] MCV (RBC) [Entitic vol] 94.4 fL Normal 80.0-99.0 [facility] Comment on above: Performed By: #### G FR, BMP, CBC, ANEU, ADIFF #### [place] [address] Platelet 149 10 3/mcL Low 150-450 [facility] Comment on above: Performed By: #### G FR, BMP, CBC, ANEU, ADIFF #### [place] [address] Platelet mean volume (Bld) [Entitic vol] 10.9 fL High 6.6-10.5 [facility] Comment on above: Performed By: #### G FR, BMP, CBC, ANEU, ADIFF #### [place] [address] RBC 4.25 10 6/mcL Normal 4.10-5.30 [facility] Comment on above: Performed By: #### G FR, BMP, CBC, ANEU, ADIFF #### [place] [address] WBC 4.2 10 3/mcL Low 4.5-10.8 [facility] Comment on above: Performed By: #### G FR, BMP, CBC, ANEU, ADIFF #### [place] [address] Mahin 01-22-2025 Ferritin [Mass/Vol] 42.3 ng/mL Normal 8.0-252.0 [facility] Comment on above: Performed By: #### G FR, BMP, CBC, ANEU, ADIFF #### [place] [address] HFPon 01-22-2025 Bili Indirect 1.6 mg/dL Normal 0.1-10.0 [facility] Comment on above: Performed By: #### G FR, BMP, CBC, ANEU, ADIFF #### [place] [address] Albumin Level 3.9 G/dL Normal 3.2-4.8 [facility] Comment on above: Performed By: #### G FR, BMP, CBC, ANEU, ADIFF #### [place] [address] Albumin/Globulin [Mass ratio] 1.4 {ratio} Normal 0.9-1.6 [facility] Comment on above: Performed By: #### G FR, BMP, CBC, ANEU, ADIFF #### [place] [address] ALP [Catalytic activity/Vol] 56 U/L Normal 38-126 [facility] Comment on above: Performed By: #### G FR, BMP, CBC, ANEU, ADIFF #### [address] [address] ALT [Catalytic activity/Vol] 79 U/L High 10-49 [facility] Comment on above: Performed By: #### G FR, BMP, CBC, ANEU, ADIFF #### [address] [address] AST [Catalytic activity/Vol] 68 U/L High 8-34 [facility] Comment on above: Performed By: #### G FR, BMP, CBC, ANEU, ADIFF #### [place] [address] Bili Direct 0.6 mg/dL High 0.0-0.4 [facility] Comment on above: Result Comment: Use of this assay is not recommended for patients undergoing treatment with eltrombopag due to the potential for falsely elevated results. Performed By: #### G FR, BMP, CBC, ANEU, ADIFF #### [place] [address] Bili Total 2.20 mg/dL High 0.20-1.20 [facility] Comment on above: Result Comment: Use of this assay is not recommended for patients undergoing treatment with eltrombopag due to the potential for falsely elevated results. Performed By: #### G FR, BMP, CBC, ANEU, ADIFF #### [place] [address] Globulin 2.7 G/dL Normal 1.5-3.8 [facility] Comment on above: Performed By: #### G FR, BMP, CBC, ANEU, ADIFF #### [place] [address] Total Protein 6.6 G/dL Normal 5.7-8.2 [facility] Comment on above: Performed By: #### G FR, BMP, CBC, ANEU, ADIFF #### [place] [address] LABORATORYOrdered By: SYSTEM SYSTEM on 01-22-2025 Albumin BCP dye [Mass/Vol] 3.9 G/dL Normal 3.2 - 4.8 G/dL AH ADM SS Albumin/Globulin [Mass ratio] 1.4 {ratio} [...] above: Interpretive Data: T esting performed on SidelineSwap analyzer using enzymatic creatinine methodology. Electrolyte Balance [...] ng/mL Normal 8.0 - 25 2.0 ng/mL ADM SS Globulin 2.7 G/dL Normal 1.5 - 3.8 G/dL ADM SS Glucose [Mass/Vol] 99 mg/dL Normal 82 - 115 mg/dL ADM SS Hematocrit (Bld) [Volume fraction] 40.1 % Normal 34.0 - 46.0 % Workflow SS Hemoglobin (Bld) [Mass/Vol] 13.7 G/dL Normal 12.0 - 16.0 G/dL AH Workflow SS Lymphocytes (Bld) [#/Vol] 0.9 103/mcL Normal 0.9 - 4.3 10^3/mcL AH Workflow SS Lymphocytes/100 WBC (Bld) 22.4 % Normal 20.0 - 40.0 % Workflow SS MCH (RBC) [Entitic mass] 32.1 pg Normal 27.0 - 33.0 pg Workflow SS MCHC 34.0 G/dL Normal 32.0 - 36.0 G/dL Workflow SS MCV (RBC) [Entitic vol] 94.4 fL Normal 80.0 - 99.0 fL Workflow SS Monocytes (Bld) [#/Vol] 0.5 103/mcL [...] 10.5 fL Workflow SS Platelets (Bld) [#/Vol] 149 103/mcL Low 150 - 450 10^3/mcL AH Workflow SS Potassium [Moles/Vol] 4.6 mmol/L Normal 3.5 - 5.0 mEq/L ADM SS Protein [Mass/Vol] 6.6 G/dL Normal 5.7 - 8.2 G/dL ADM SS RBC (Bld) [#/Vol] 4.25 106/mcL Normal 4.10 - 5.3 0 10^6/mcL AH Workflow SS Sodium [Moles/Vol] 140 mmol/L Normal 136 - 145 mEq/L ADM SS Urea nitrogen [Mass/Vol] 28.0 mg/dL High 8.0 - 22.0 mg/dL ADM SS Urea nitrogen/Creatinine [Mass ratio] 27.5 ratio High 10.0 - 22.0 ratio ADM SS WBC (Bld) [#/Vol] 4.2 103/mcL Low 4.5 - 10.8 10^3/mcL Workflow SS .GFRon 01-02-2025 Estimated Glomerular Filtration Rate 62 ml/min/1.73sqm Normal [facility] Comment on above: Result Comment: Stages of [...] 1C, GFR, BMP, ALT, AST #### [place] [address] [address] A1Con 01-02-2025 Glucose [Mass/Vol] 137 mg/dL Normal [facility] Comment on above: Result Comment: Lauryn mated Average Glucose calculated by equation ((28.7xA1C)-46.7) Estimated average glucose (eAG) is a calculated value from Hemoglobin A1C and is bilingual inside sales representative of the average blood glucose level in the last 2-3 month period. Normal range: less than 114 mg/dL Performed By: #### A 1C, GFR, BMP, ALT, AST #### [address] [address] HbA1c (Bld) [Mass fraction] 6.4 % Normal 4.3-6.4 [facility] Comment on above: Performed By: #### A 1C, GFR, BMP, ALT, AST #### [address] [address] ALT/SGPTon 01-02-2025 ALT [Catalytic activity/Vol] 78 U/L High 14-59 [facility] Comment on above: Performed By: #### A 1C, GFR, BMP, ALT, AST #### [address] [address] Mateusz 01-02-2025 AST [Catalytic activity/Vol] 49 U/L High 10-40 [facility] Comment on above: Performed By: #### A 1C, GFR, BMP, ALT, AST #### [address] [address] BMPon 01-02-2025 BUN/Creatinine Ratio 28 ratio High 7-27 [facility] Comment on above: Performed By: #### A 1C, GFR, BMP, ALT, AST #### [address] [address] Calcium [Mass/Vol] 9.8 mg/dL Normal 8.4-10.2 [facility] Comment on above: Performed By: #### A 1C, GFR, BMP, ALT, AST #### [address] [address] Chloride [Moles/Vol] 105 mmol/L Normal 98-107 [facility] Comment on above: Performed By: #### A 1C, GFR, BMP, ALT, AST #### [address] [address] CO2 [Moles/Vol] 28 mmol/L Normal 23-31 [facility] Comment on above: Performed By: #### A 1C, GFR, BMP, ALT, AST #### [place] [id number] Creatinine [Mass/Vol] 0.96 mg/dL Normal 0.55-1.02 [facility] Comment on above: Result Comment: Test ing performed on Siemens Dimension EXL analyzer using a modified kinetic Maria E technique. Performed By: #### A 1C, GFR, BMP, ALT, AST #### [address] [address] Electrolyte Balance 7.0 mEq/L Normal 4.0-15.0 [facility] Comment on above: Performed By: #### A 1C, GFR, BMP, ALT, AST #### [address] [address] Glucose [Mass/Vol] 108 mg/dL Normal 83-110 [facility] Comment on above: Performed By: #### A 1C, GFR, BMP, ALT, AST #### [address] [address] Potassium [Moles/Vol] 4.6 mmol/L Normal 3.5-5.1 [facility] Comment on above: Performed By: #### A 1C, GFR, BMP, ALT, AST #### [address] [address] Sodium [Moles/Vol] 140 mmol/L Normal 136-145 [facility] Comment on above: Performed By: #### A 1C, GFR, BMP, ALT, AST #### [address] [address] Urea nitrogen [Mass/Vol] 27 mg/dL High 7-18 [facility] Comment on above: Performed By: #### A 1C, GFR, BMP, ALT, AST #### [place] [id number] [place] [id number] LABORATORYOrdered By: SYSTEM SYSTEM on 01-02-2025 ALT [...] calculated value from Hemoglobin A1C and is bilingual inside sales representative of the average blood glucose level [...] cm Dr. Yunior Ley DO Work Phone: [facility] 05-25-2025 11:28-0400 Body mass index (BMI) [Ratio] 26.3 kg/m2 Dr. Yunior Ley DO Work Phone: [facility] 05-25-2025 11:28-0400 Body weight 71.[address] Yunior Ley DO Work Phone: [facility] 05-25-2025 11:28-0400 Diastolic blood pressure 86 mm[Hg] Dr. Yunior Ley DO Work Phone: [facility] 05-25-2025 11:28-0400 Systolic blood pressure 138 mm[Hg] Dr. Yunior Ley DO Work Phone: [facility] 02-13-2025 04:28-0400 Body temperature 97.52 [degF] GISEL COLUNGA MD [facility] 02-13-2025 04:28-0400 Diastolic Blood Pressure Non-Invasive 63 mm[Hg] GISEL COLUNGA MD [facility] 02-13-2025 04:28-0400 Heart rate 74 /min GISEL COLUNGA MD [facility] 02-13-2025 04:28-0400 Respiratory rate 16 /min GISEL COLUNGA MD [facility] 02-13-2025 04:28-0400 Systolic Blood Pressure Non-Invasive 122 mm[Hg] GISEL COLUNGA MD [address] [place] [address] 02-13-2025 02:12-0400 Heart rate 63 /min GISEL COLUNGA MD [address] [place] [address] 02-12-2025 22:30-0400 Heart rate 59 /min GISEL COLUNGA MD [address] [place] [address] 02-12-2025 22:30-0400 Respiratory rate 16 /min GISEL COLUNGA MD [address] [place] [address] 02-12-2025 21:33-0400 Diastolic Blood Pressure Non-Invasive 82 mm[Hg] GISEL COLUNGA MD [address] [place] [address] 02-12-2025 21:33-0400 Systolic Blood Pressure Non-Invasive 155 mm[Hg] GISEL COLUNGA MD [address] [place] [address] 02-12-2025 19:34-0400 Body temperature 97.7 [degF] GISEL COLUNGA MD [address] [place] [id number] 02-12-2025 18:22-0400 Diastolic Blood Pressure Non-Invasive 81 mm[Hg] GISEL COLUNGA MD [address] [place] [id number] 02-12-2025 18:22-0400 Systolic Blood Pressure Non-Invasive 146 mm[Hg] GISEL COLUNGA MD [address] [place] [id number] 02-12-2025 13:05-0400 Body temperature 97.16 [degF] GISEL COLUNGA MD [address] [place] [id number] 02-12-2025 12:55-0400 Respiratory Rate - Anes 0 br/min GISEL COLUNGA MD [address] [place] [id number] 02-12-2025 12:50-0400 Respiratory Rate - Anes 3 br/min GISEL COLUNGA MD [address] [place] [id number] 02-12-2025 12:45-0400 Body temperature 96.55 [degF] GISEL COLUNGA MD [address] [place] [id number] 02-12-2025 12:45-0400 Respiratory Rate - Anes 8 br/min GISEL COLUNGA MD [address] [place] [id number] 02-12-2025 12:40-0400 Body temperature 96.69 [degF] GISEL COLUNGA MD [address] [place] [address] 02-12-2025 12:35-0400 Body temperature 96.67 [degF] GISEL COLUNGA MD [address] [place] [address] 02-12-2025 10:08-0400 Body height 165.1 cm GISEL COLUNGA MD [address] [place] [address] 02-12-2025 10:08-0400 Body temperature 98.06 [degF] GISEL COLUNGA MD [address] [place] [address] 02-12-2025 10:08-0400 Body weight 72.3 kg GISEL COLUNGA MD [address] [place] [address] 02-12-2025 10:08-0400 Heart rate 67 /min GISEL COLUNGA MD [address] [place] [address] 01-22-2025 13:04-0400 Blood Pressure Location GISEL COLUNGA MD [address] [place] [address] 01-22-2025 13:04-0400 Blood Pressure Method GISEL COLUNGA MD [address] [place] [address] 01-22-2025 13:04-0400 Diastolic Blood Pressure Non-Invasive 78 mm[Hg] GISEL COLUNGA MD [address] [place] [address] 01-22-2025 13:04-0400 Systolic Blood Pressure Non-Invasive 148 mm[Hg] GISEL COLUNGA MD [address] [place] [address] 01-22-2025 12:41-0400 Blood Pressure Location GISEL COLUNGA MD [address] [place] [address] 01-22-2025 12:41-0400 Blood Pressure Method GISEL COLUNGA MD [facility] 01-22-2025 12:41-0400 Body height 164 cm GISEL COLUNGA MD [address] 01-22-2025 12:41-0400 Body temperature 98.06 [degF] GISEL COLUNGA MD [address] 01-22-2025 12:41-0400 Body weight 73.3 kg GISEL COLUNGA MD [address] 01-22-2025 12:41-0400 Body weight 27.25 kg/m2 GISEL COLUNGA MD [address] 01-22-2025 12:41-0400 Diastolic Blood Pressure Non-Invasive 78 mm[Hg] GISEL COLUNGA MD [address] 01-22-2025 12:41-0400 Heart rate 59 /min GISEL COLUNGA MD [facility] 01-22-2025 12:41-0400 Systolic Blood Pressure Non-Invasive 164 mm[Hg] GISEL COLUNGA MD [facility] Encounters Encounter Date Encounter Type Care Provider Facility Start: 06-12-2025 ambulatory Yunior Ley Facility:[facility] Start: 06-04-2025 End: 06-04-[address] Yunior Ley DO Work Phone: -[facility] Start: 06-04-2025 End: 06-04-[address] Coni Blanco DO -[facility] Work Phone: Start: 06-04-2025 End: 06-04-2025 ambulatory Yunior Ley Facility:[facility] Start: 05-25-2025 End: 05-25-[address] Yunior Ley DO Work Phone: -[facility] Start: 05-25-2025 End: 05-25-[address] Coni Blanco DO -[facility] Work Phone: Start: 05-12-2025 Non-patient / Non-visit Dr. Ollie Song MD -[facility] Work Phone: Start: 04-15-2025 End: 04-15-2025 Patient encounter procedure Sandra HALE -[facility] Work Phone: Start: 04-15-2025 End: 04-15-[address] Yunior Ley DO Work Phone: [facility] Work Phone: Start: 03-20-2025 End: 03-20-[address] Yunior Ley DO Work Phone: [facility] Work Phone: Start: 03-20-2025 End: 03-20-2025 Patient encounter procedure Sandra HALE -[facility] Work Phone: Start: 03-20-2025 End: 03-20-2025 ambulatory Sandra Kwan Facility:[facility] Start: 02-12-2025 End: 02-13-2025 ambulatory GISEL COLUNGA MD Facility:A Start: 02-12-2025 End: 02-13-2025 Observation GISEL COLUNGA MD [facility] Start: 02-11-2025 End: 02-11-2025 Patient encounter procedure Sandra HALE -[facility] Work Phone: Start: 02-11-2025 End: 02-11-2025 ambulatory Sandra Kwan Facility:[facility] Start: 2025 End: [address] YUNIOR LEY MD Facility:A Start: 2025 End: 2025 SAME DAY STAY GISEL COLUNGA MD [facility] Start: 01-22-2025 End: 01-22-[address] YUNIOR LEY MD Facility:[facility] Start: 01-22-2025 End: 01-22-[address] YUNIOR LEY MD [facility] Start: 01-22-2025 End: 01-22-2025 Admission to [facility] GISEL COLUNGA MD [facility] Start: 01-22-2025 End: 01-22-[address] YUNIOR LEY MD Facility:A Start: 01-02-2025 End: 01-02-[address] YUNIOR LEY MD Facility:[facility] Start: 01-02-2025 End: 01-02-[address] YUNIOR LEY MD [facility] Procedures Date Procedure Procedure Detail Performing Clinician Start: 06-04-[address] Yunior Ley DO Work Phone: Cardioversion GISEL Loza Cholecystectomy DR YUNIOR LOPEZ MD Colonoscopy GISEL COLUNGA MD [facility] biopsy of cervix GISEL COLUNGA MD Extraction of wisdom tooth Janae COLUNGA MD Ligation of fallopian tube F MELODY COLUNGA MD Plan of Treatment Date Care Activity Detail Author Comprehensive metabo lic 2000 panel - Serum or Plasma [facility] Payers Date Payer Category Payer Self-pay 2024 Unknown [id number] 2024 Unknown [id number] 2015 Unknown [id number] [facility] [id number] 2001 Medicare [id number] 2001 Unknown [id number] 1950 Unknown [id number] 2.16.8 [id number] 1950 Unknown [id number] 2.16.8 [id number] 1950 Unknown [id number] 2.16.8 [id number] 1950 Unknown [id number] 2.16.8 [id number] 1950 Unknown [id number] 2.16.8 [id number] Unknown [id number] 2.16.8 [id number] Unknown [id number] 2.16.8 [id number] Unknown [id number] 2.16.8 [id number] Unknown [id number] 2.16.8 [id number] Unknown [id number] 2.16.8 [id number] Unknown [id number] 2.16.8 [id number] Social History Date Type Detail Facility Start: 05-26-2020 End: 04-14-2025 Tobacco smoking status Never smoked tobacco (finding) [facility] Sexual Orientation Lela Billie leary [facility] Start: 1950 Sex Assigned At Female A [facility] Start: 10-28-2019 Sex Female (finding) [facility] Functional Status Date Assessment Result Facility 02-13-2025 Functional Status Independent [facility] 02-13-2025 Functional Status Standard Safety Safety level maintained [facility] 02-13-2025 Functional Status Repositions self [facility] 02-13-2025 Functional Status [facility] 02-13-2025 Functional Status [facility] 02-12-2025 Functional Status Room check performed [facility] 02-12-2025 Functional Status [facility] 02-12-2025 Functional Status [facility] 02-12-2025 Functional Status Identification band [facility] 02-12-2025 Functional Status Maintained [facility] 01-22-2025 Functional Status Sensory Deficits None A [facility] Mental Status Date Assessment Result Facility 02-13-2025 Mental Status Oriented x 4 [facility] 02-13-2025 Mental Status [facility] 02-12-2025 Mental Status Orientation Assessment Orie nted x 4 [facility] 02-12-2025 Mental Status [facility] al Clinical Notes 12-30-2024 to 06-08-2025 Note Date & Type Note Facility 06-08-2025 Radiology Diagnostic study note [facility] Imaging Services [address] [place] [address] Transvaginal Non- MR#: [id number] Acct: [id number] Name: GILMA RABAGO Rep #: [id number] : 1950 F 75 From: Efrain Phipps MD PCP: Dr. Yunior Ley MD Status: REG C YING Study:Transvaginal Non- Date of Exam: 06/04/25 Exam# [id number] Ordering Dr: Coni Esquivel DO PROCEDURE: TRANSVAGINAL NON- 06/04/2025 REASON FOR EXAM: PROLAPSE TECHNIQUE: TRANSVAGINAL NON- COMPARISON: None FINDINGS: Measurements: Uterus: 7.3 cm x 4.9 cm x 3.2 cm with a volume of 59 mL Endometrial Thickness: Endometrium is thickening for the patient's postmenopausal state. It measures 8.2 mm. It is heterogeneous in appearance with fluid and findings suggestive of possible polyps the largest measuring 6 mm x 14 mm x 12 mm. Right Ovary: 1.7 cm x 1.6 cm x 1.1 cm with a volume of 1.61 mL. Left Ovary: The left ovary is not visualized. Uterus: Heterogeneous echotexture suggestive of fibroid change although no focalfibroid is seen. Endometrium: Heterogeneous thickening of the endometrium measuring 8.2 mm with fluid and possible polyps. Clinical correlation recommended. Right ovary: Normal size and echotexture. Left ovary: Not visualized. Other: No large pelvic mass identified. US/Transvaginal Non- IMPRESSION: Heterogeneous thickening of the endometrium as described. Possible polyps. Clinical correlation recommended. Heterogeneous appearance of the uterus suggestive of fibroid change. Reading Location: [id number] CC: Dr. Yunior Ley MD; Dr. Coni Blanco DO ~ Hvac Service Manager: Signed [facility] 02-13-2025 Discharge summary Date of Service 02/13/2025 [...] MD When:04/15/2025 11:15 AM EDT Where:[address] [facility] [address] [facility] [place] [address]- [phone] Follow Up Appointments No qualifying data available. Follow Up Labs/Studies Discharge Labs No Follow-up Labs Discharge Studies No Follow-up Studies Discharge Diet No qualifying data available. Discharge Activity Discharge Activity - Canceled -- Resume your pre-hospitalization activity, 02/13/25 12:59:00 EDT Condition on Discharge Good Discharge Disposition Home Digitally Signed by GISEL COLUNGA MD on 02/13/2025 05:34 PM [facility] 02-13-2025 Summary of episode note Discharge Instructions Thank you for allowing [facility] to assist you with your healthcare needs. The following is important discharge information regarding your hospital visit. 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 This information is not intended to replace advice given to you by your health care provider. Make sure you discuss any questions you have with your health care provider. Additional Information VACCINATE! IT SAVES LIVES! Members of the community who have not yet received the COVID-19 vaccine and would like to receive it can visit one of [facility] vaccine clinics. There are many vaccine clinic locations within the [facility]. For locations and available times, please visit [email or web address] [email or web address] It is important to note that some COVID mobile vaccine clinics are held outdoors and may be canceled in rainy or stormy conditions. To learn more about pediatric vaccinations (ages 5-11), we invite you to visit the [facility] webpage. [email or web address]://www.[email or web address]/p [email or web address]-Freq agcdva-Txfdo-[email or web address].html To learn more about the COVID-19 vaccine, we invite you to visit the CDC website for a list of frequently asked questions.https://www.cdc.gov/co ronavirus/2019-ncov/vaccines/faq .html [facility] Patient Portal Access Instructions: Stay connected with your healthcare team and access your personal medical information anytime with the [facility] Patient Portal. Please follow the directions below to create your [facility] account: 1.Access the email account you provided upon registration to the hospital/physician office.2.Look for an invitation email from [facility].3.Open the email and access the invitation link: Accept Invitation to [facility].4.Fill in the required dumont to create your account. To access your account, visit [email or web address]. Click the blue button labeled Access Patient Portal and then log in with the username [...] you will allow to register on the [facility] Patient Portal for access to your information. You can also access the [facility] Patient Portal on the [employer] sally. Simply click on Patient Portal and then log into your account. If you would like to receive a full copy of your medical records, please contact the [facility] Medical Records Department by calling [phone], Sunday through Sunday between 8 a.m. and [...] Call your local pharmacy or go to [email or web address] to find one close to you.3.Make use of household items: Use cat litter or old coffee grounds to dispose medications if other options are not available. Mix your drugs with these household products, seal them in an airtight container and throw it into the garbage. Call [facility]: [phone] to be sure your drugs can be [...] been reviewed and explained to me and I,HIMA GILMA Cardoso understand my current condition and have read and understand these discharge instructions. I have received a written copy of the plan/instructions. If I have questions, I am aware that I should contact my doctor. 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 This information is not intended to replace advice given to you by your health care provider. Make sure you discuss any questions you have with your health care provider. Follow Up Care 2025 10:34:17 With:GISEL COLUNGA MD Address: [address] [place] [address] [address] [facility] [place] [address]- [phone] When:04/15/2025 11:15:00 [facility] 02-13-2025 Note Exam Date Time Procedure Performing Provider Status 02/13/25 3:22 AM Electrocardiogram - EKG - CV SCOTTY VARGAS MD; Auth (Verified) ECG Final Report SINUS RHYTHM NONSPECIFIC T ABNORMALITIES, ANTERIOR LEADS PROLONGED QT INTERVAL Electronic Signature: SCOTTY VARGAS MD 02/13/2025 11:07:51 [id number] Anesthesiology Consult note Patient: GILMA RABAGO Age: [...] JANE SOSA MD on 02/12/2025 02:13 PM [id number] Note* Exam Date Time Procedure Performing Provider Status 02/12/25 11:09 AM Ablation CV SYSTEM; Auth (Verifi ed) [id number] Note* Exam Date Time Procedure Performing Provider Status 02/12/25 10:31 AM Electrocardiogram - EKG - CV SCOTTY AKINS MD; Auth (Verified) ECG Final Report SINUS RHYTHM BORDERLINE T WAVE ABNORMALITIES Electronic Signature: SCOTTY VARGAS MD 02/13/2025 11:07:55 [id number] Anesthesiology Consult note Patient: GILMA RABAGO Age: [...] Medical DCM (DILATED CARDIOMYOPATHY) / SNOMED CT 0585670335 / Confirmed HYPERTENSION, ESSENTIAL / SNOMED CT 84181885 / Confirmed HYPERLIPEMIA, MIXED / SNOMED CT 314752059 / Confirmed LEG WEAKNESS, BILATERAL / SNOMED CT 9182103 / Confirmed PAF (PAROXYSMAL ATRIAL FIBRILLATION) / SNOMED CT 108504410 / Confirmed SOB (shortness of breath) / SNOMED CT 686885106 / Confirmed, Active Problems (13) Basal cell [...] HTN - Hypertension Sister Procedure history: Cholecystectomy (22212942). Extraction of wisdom tooth (132833879). Cardioversion (517627511). Tubal ligation (109313206). Conization of uterine cervix (75443556). Colonoscopy (305846310). Social History: Social & Psychosocial Habits Alcohol [...] At-Risk Indicator YES . Assessment and Plan [employer] Anesthesiologists (ASA) physical status classification: [...] JANE SOSA MD on 02/12/2025 10:58 AM [id number] Evaluation note* Diagnosis Onset Date Resolution Status Admit Date Elevated liver enzymes acute Ap ril 2024 10:24am [facility] Work Phone: 1(881) 701-377604-02-2025 Evaluation note* Diagnosis Onset Date Resolution Status Admit Date Elevated liver enzymes acute Ap ril 2024 10:24am Elevated liver enzymes acute Ju ne 2024 3:03pm [facility] Work Phone: 1(113) 261-457204-02-2025 Evaluation note* Diagnosis Onset Date Resolution Status Admit Date Elevated liver enzymes acute Ap ril 2024 10:24am Elevated liver enzymes acute Ju ne 2024 3:03pm Elevated liver enzymes acute Ju ly 2024 11:18am History of cardiac ablation for atrial fibrillation acute May 25, 025 11:18am Pelvic organ prolapse quantification stage 2 cystocele acute May 25, 2025 11:18am [facility] Work Phone: 1(903) 816-629102-18-2025 Hospital Discharge instructions Follow Up Care 12/30/2024 11:44:15 With:GISEL COLUNGA MD Address: [address] [place] [address] [address] [facility] [place] [address]- [phone] When:04/15/2025 11:15:00 [facility] Evaluation + Plan note Future Appointments Appointment Date:2025 11:00:00 AM Scheduled Provider: Location:Heart Lab Appointment Type:EP Ablation PF-Ensite Appointment Date:02/12/2025 01:15:00 PM Scheduled Provider:JOSE ENRIQUE ROSALES Location:[facility] Enrique Appointment Type:CV OV Appointment Date:04/15/2025 11:15:00 AM Scheduled Provider:JAROCHO COLUNGA Location:[facility] Appointment Type:CV OV [facility] Evaluation + Plan note Future Appointments Appointment Date:2025 11:00:00 AM Scheduled Provider: Location:Heart Lab Appointment Type:EP Ablation PF-Ensite Appointment Date:04/15/2025 11:15:00 AM Scheduled Provider:JAROCHO COLUNGA Location:[facility] Appointment Type:CV OV [facility] Evaluation + Plan note Future Appointments Appointment Date:02/12/2025 11:00:00 AM Scheduled Provider: Location:Heart Lab Appointment Type:EP Ablation PF-Ensite Appointment Date:04/15/2025 11:15:00 AM Scheduled Provider:JAROCHO COLUNGA Location:[facility] Appointment Type:CV OV Appointment Date:05/13/2025 10:15:00 AM Scheduled Provider:DONELL JAIMES Location:[facility] Appointment Type:CV OV [facility] Evaluation + Plan note Future Appointments Appointment Date:04/15/2025 11:15:00 AM Scheduled Provider:JAROCHO COLUNGA Location:[facility] Appointment Type:CV OV Appointment Date:05/13/2025 10:15:00 AM Scheduled Provider:DONELL JAIMES Location:[facility] Appointment Type:CV OV [facility] Hospital course Narrative No data available for this section [facility] Hospital Discharge instructions No data available for this section [facility] Progress note No data available for this section [facility] Reason for referral (narrative)No reason for referral information [facility] Work Phone: Summary Purpose Family History [...] April 15, 2025 3:03p m Surgical Consult ([facility]) May 25 11:18am Chief Complaint Admit Date liver concerns February 11, 2025 10:2 4am [facility]ORD[facility] March 20, 2025 10:33a m Follow up April 15, 2025 3:03p m Surgical Consult ([facility]AN) May 25 11:18am prolapse of female pelvic organs June 042024 12:39pm Reason for Visit Admit Date Elevated liver enzymes February 11, 2025 1 0:24am Elevated liver enzymes April 15, 2025 3: 03pm Elevated liver enzymes May 25, 2025 1 1:18am History of cardiac ablation for atrial f ibrillation May 25, 2025 11:18am Pelvic organ prolapse quantification sta ge 2 cystocele May 25, 2025 11:18am Additional Source Comments Patient Care team [...] May 25, 2025 End: May 25, 2025 Team Status: Inactive Member Role/Relationship Status Dates Dr. Yunior Ley DO Primary Care Provider Active Start: May 12, 2025 Dr. Nguyen Song MD Attending Provider Active Start: May 12, 2025 Team Status: Inactive Member Role/Relationship Status Dates Dr. Yunior Ley DO Primary Care Provider Active Start: May 25, 2025 End: May 25, 2025 Dr. Yunior Ley DO Referring Provider Active Start: May 25, 2025 End: May 25, 2025 Dr. oCni Blanco DO Attending Provider Activ e Start: May 25, 2025 End: May 25, 2025 Team Status: Inactive Member Role/Relationship Status Dates Dr. Yunior Ley DO Primary Care Provider Active Start: June 04, 2025 End: June 04, 2025 Dr. Coni Blanco DO Attending Provider Activ e Start: June 04, 2025 End: June 04, 2025 Dr. Coni Blanco DO Referring Provider Activ e Start: June 04, 2025 End: June 04, 2025 INFORMATION SOURCE (unrecogn ized section and content) DATE CREATED AUTHOR 01/12/2025 [facility] DATE CREATED AUTHOR AUTHOR'S ORGANIZ ATION 02/18/2025 [facility] DATE CREATED AUTHOR AUTHOR'S ORGANIZ ATION 06/11/2025 [facility] Goals (unrecognized section and content) Goals may [...] BE BASED ON THE PRIMARY CLINICAL RECORDS. [facility] [employer] [facility]. provides no warranty or guarantee of the accuracy or completeness of information in this document.
[2025-06-12 11:25] LABS: Cholesterol 220 mg/dL (<=200); Low Density Lipoprotein Calc. 139 mg/dL; Triglycerides 118 mg/dL; Very Low Density Lipoprotein 24 mg/dL (5-40); cholesterol:hdl ratio screen 3.86
[2025-06-12 15:42] LABS: AST(SGOT) 7 U/L (<=31); Alanine Aminotransfer ALT/SGPT < 5 U/L (<=34); Albumin, Serum 4.2 g/dL (3.4-4.8); Alkaline Phosphatase 61 U/L (35-104); Anion Gap 12 (5-15); BUN 31 mg/dL (4-19); BUN/Creat Ratio 24.2 RATIO (10-20); Calcium,Total 10.0 mg/dL (7.6-11.0); Carbon Dioxide 23.7 mmol/L (21.0-32.0); Chloride 105 mmol/L (98-108); Globulin 2.6 g/dL (2.2-4.2); Glucose 120 mg/dL (70-99); Potassium 4.6 mmol/L (3.3-5.1)
== END | disposition home or self-care (01) ==
PROVIDERS: PCP Family Medicine; Referring Provider Student in an Organized Health Care Education/Training Program; Visit Provider Family Medicine
DX: Z12.31 Encounter for screening mammogram for malignant neoplasm of breast (principal); E11.22 Type 2 diabetes mellitus with diabetic chronic kidney disease; R74.8 Abnormal levels of other serum enzymes; N18.9 Chronic kidney disease, unspecified
CPT/HCPCS: 36415; 77063; 77067; 80053; 80061; 83036